=== PATIENT | female | born 1995 | race Hispanic/Latino ===

== ENCOUNTER 2017-10-28 01:33 | Emergency (ER) | payer OTHER, SELFPAY ==
[2017-10-28] MEDS ORDERED: metroNIDAZOLE 500 MG TABLET ONE (01:53)
[2017-10-28] MEDS ORDERED: HYDROCODONE/APAP 10/325 TAB ONE (01:54)
[2017-10-28] MEDS ORDERED: CLINDAMYCIN HCL 150 MG CAP ONE (01:55)
[2017-10-28] MEDS ORDERED: ONDANSETRON 4 MG (ODT) TAB ONE (01:55)
--- NOTE | 2017-10-28 01:55 | ER ---
Nurse's Notes [facility] Name: Isamar Baird Age: 22 yrs Sex: Female : 1995 Arrival Date: 10/28/2017 Time: 01:38 Bed 7 Private MD: Diagnosis: Dental caries Presentation: 10/28 01:46 Presenting complaint: Patient states: she has had a toothache for several days bought bb some ora-gel tonight and when she used it she got a migraine approx 20 mins later which was approx an hour ago. Transition of care: patient was not received from another setting of care. Onset of symptoms was October 28, 2017. Risk Assessment: Do you want to hurt yourself or someone else? Patient reports no desire to harm self or others. Initial Sepsis Screen: Does the patient meet any 2 criteria? No. Patient's initial sepsis screen is negative. Does the patient have a suspected source of infection? No. Patient's initial sepsis screen is negative. Care prior to arrival: None. 01:46 Method Of Arrival: Ambulatory bb 01:46 Acuity: NAKUL 4 bb Triage Assessment: 02:18 Headache History: The patient has had previous headaches and this one is similar to lp1 previous episodes. 02:19 Pain: Also complains of nausea, inability to concentrate. 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 - Social history:: Smoking status: Patient/guardian denies using tobacco, Patient/guardian denies using alcohol, street drugs. - Ebola Screening: : No symptoms or risks identified at this time. Screenin:46 Abuse screen: Denies threats or abuse. Denies injuries from another. Nutritional lp1 screening: No deficits noted. Tuberculosis screening: No symptoms or risk factors identified. Fall Risk None identified. Assessment: 01:44 General: Appears in no apparent distress. Behavior is calm, cooperative, appropriate lp1 for age. Pain: Complains of pain in head Pain does not radiate. Pain currently is 8 out of 10 on a pain scale. Quality of pain is described as pressure, Pain began 1 hour ago. Neuro: Level of Consciousness is awake, alert, obeys commands, Reports headache in entire. Cardiovascular: Patient's skin is warm and dry. Respiratory: Respiratory effort is even, unlabored, Respiratory pattern is regular, symmetrical. GI: No signs and/or symptoms were reported involving the gastrointestinal system. : No signs and/or symptoms were reported regarding the genitourinary system. EENT: No signs and/or symptoms were reported regarding the EENT system. Derm: Skin is pink, warm \T\ dry. Musculoskeletal: Circulation, motion, and sensation intact. Vital Signs: 01:48 BP 127 / 81; Pulse 122; Resp 16 S; Temp 98.3(O); Pulse Ox 98% on R/A; Weight 113.4 kg bb (R); Height 5 ft. 2 in. (157.48 cm) (R); Pain 8/10; 02:18 Pulse 100; Resp 16; Pulse Ox 100% on R/A; lp1 01:48 Body Mass Index 45.73 (113.40 kg, 157.48 cm) ED Course: 01:38 Patient arrived in ED. es 01:40 Nader Fatima, RN is Primary Nurse. bp 01:40 Evans Van MD is Attending Physician. kdr 01:47 Patient has correct armband on for positive identification. Pulse ox on. NIBP on. lp1 01:48 Triage completed. bb 01:48 Ladan Cabrera, RN is Primary Nurse. lp1 01:48 Arm band placed on Patient placed in an exam room, on a stretcher, on pulse oximetry. bb Family accompanied patient. 02:19 No provider procedures requiring assistance completed. Patient did not have IV access lp1 during this emergency room visit. Administered Medications: 01:55 Drug: Flagyl 500 mg Route: PO; lp1 02:19 Follow up: Response: No adverse reaction lp1 01:55 Drug: Clindamycin 300 mg Route: PO; lp1 02:20 Follow up: Response: No adverse reaction lp1 01:55 Drug: [place] 10 mg-325 mg 1 tabs Route: PO; lp1 02:20 Follow up: Response: No adverse reaction lp1 01:55 Drug: Zofran 4 mg Route: PO; lp1 02:20 Follow up: Response: No adverse reaction lp1 Outcome: 01:55 Discharge ordered by . kdr 02:19 Discharged to home ambulatory, with significant other. lp1 02:19 Condition: good 02:19 Discharge instructions given to patient, Instructed on discharge instructions, follow up and referral plans. medication usage, Demonstrated understanding of instructions, follow-up care, medications, Prescriptions given X 4. 02:20 Patient left the ED. lp1 Signatures: Evans Van MD MD kdr Antonieta Washington Brenda, RN RN bb Ladan Cabrera RN RN lp1 Nader Fatima, RN RN bp
--- NOTE | 2017-10-28 01:55 | EDPHYS ---
Physician Documentation [facility] Name: Isamar Baird Age: 22 yrs Sex: Female : 1995 Arrival Date: 10/28/2017 Time: 01:38 Bed 7 Private MD: ED Physician Evans Van HPI: 10/28 01:48 This 22 yrs old Female presents to ER via Ambulatory with complaints of kdr Headache, Toothache. 01:48 The patient presents with pain, swelling. The problem is located in the left buccal kdr mucosa, upper left first molar and upper left second molar. Onset: The symptoms/episode began/occurred gradually, 3 day(s) ago. Duration: The symptoms are continuous, and are steadily getting worse. Modifying factors: The symptoms are alleviated by nothing, the symptoms are aggravated by air, chewing, food, [place] that she put on tonight. Associated signs and symptoms: Pertinent positives: headache. Severity of symptoms: At their worst the symptoms were moderate, in the emergency department the symptoms are unchanged. The patient has experienced similar episodes in the past, a few times. The patient has not recently seen a physician. 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 - Social history:: Smoking status: Patient/guardian denies using tobacco, Patient/guardian denies using alcohol, street drugs. - Ebola Screening: : No symptoms or risks identified at this time. ROS: 01:48 Constitutional: Negative for fever, chills, and weight loss, Eyes: Negative for injury, kdr pain, redness, and discharge, Neck: Negative for injury, pain, and swelling, Cardiovascular: Negative for chest pain, palpitations, and edema, Respiratory: Negative for shortness of breath, cough, wheezing, and pleuritic chest pain, Abdomen/GI: Negative for abdominal pain, nausea, vomiting, diarrhea, and constipation. 01:48 ENT: Positive for dental pain, Teeth pain Exam: 01:48 Constitutional: This is a well developed, well nourished patient who is awake, alert, kdr and in no acute distress. Head/Face: Normocephalic, atraumatic. Eyes: Pupils equal round and reactive to light, extra-ocular motions intact. Lids and lashes normal. Conjunctiva and sclera are non-icteric and not injected. Cornea within normal limits. Periorbital areas with no swelling, redness, or edema. Neck: Trachea midline, no thyromegaly or masses palpated, and no cervical lymphadenopathy. Supple, full range of motion without nuchal rigidity, or vertebral point tenderness. No Meningismus. 01:48 ENT: Dental exam: dental caries, that is mild, specifically in the upper left second bicuspid (#13), upper left first molar (#14) and upper left second molar (#15), gum swelling, that is mild, specifically in the upper left second bicuspid (#13), upper left first molar (#14) and upper left second molar (#15), pain. Vital Signs: 01:48 BP 127 / 81; Pulse 122; Resp 16 S; Temp 98.3(O); Pulse Ox 98% on R/A; Weight 113.4 kg bb (R); Height 5 ft. 2 in. (157.48 cm) (R); Pain 8/10; 02:18 Pulse 100; Resp 16; Pulse Ox 100% on R/A; lp1 01:48 Body Mass Index 45.73 (113.40 kg, 157.48 cm) bb MDM: 01:48 Data reviewed: vital signs, nurses notes. Counseling: I had a detailed discussion with kdr the patient and/or guardian regarding: the historical points, exam findings, and any diagnostic results supporting the discharge/admit diagnosis, the need for outpatient follow up. 01:55 Patient medically screened. kdr Administered Medications: 01:55 Drug: Flagyl 500 mg Route: PO; lp1 02:19 Follow up: Response: No adverse reaction lp1 01:55 Drug: Clindamycin 300 mg Route: PO; lp1 02:20 Follow up: Response: No adverse reaction lp1 01:55 Drug: [place] 10 mg-325 mg 1 tabs Route: PO; lp1 02:20 Follow up: Response: No adverse reaction lp1 01:55 Drug: Zofran 4 mg Route: PO; lp1 02:20 Follow up: Response: No adverse reaction lp1 Disposition: 10/28/17 01:55 Discharged to Home. Impression: Dental caries. - Condition is Stable. - Discharge Instructions: Dental Pain, [id number]. - Prescriptions for Clindamycin HCl 300 mg Oral Capsule - take 1 capsule by ORAL route every 6 hours for 10 days; 40 capsule. Flagyl 500 mg Oral Tablet - take 1 tablet by ORAL route every 6 hours for 10 days; 40 tablet. Tylenol- Codeine #3 300-30 mg Oral Tablet - take 2 tablets by ORAL route every 6 hours As needed; 15 tablet. Zofran 4 mg Oral Tablet - take 1 tablet by ORAL route every 4-6 hours As needed; 12 tablet. - Medication Reconciliation Form, Thank You Letter, Antibiotic Education, Prescription Opioid Use form. - Follow up: Private Physician; When: 2 - 3 days; Reason: If symptoms return, Further diagnostic work-up, Recheck today's complaints, Continuance of care, Re-evaluation by your physician. - Problem is new. - Symptoms are unchanged. Signatures: Evans Van MD MD [facility] Gloria Robin RN RN bb Ladan Cabrera RN RN lp1 Corrections: (The following items were deleted from the chart) 02:20 01:55 10/28/2017 01:55 Discharged to Home. Impression: Dental caries. Condition is lp1 Stable. Forms are Medication Reconciliation Form, Thank You Letter, Antibiotic Education, Prescription Opioid Use. Follow up: Private Physician; When: 2 - 3 days; Reason: If symptoms return, Further diagnostic work-up, Recheck today's complaints, Continuance of care, Re-evaluation by your physician. Problem is new. Symptoms are unchanged. kdr
== END 2017-10-28 02:20 | disposition home or self-care (01) ==
LOC: ER 01:33
DX: K02.9 Dental caries, unspecified (principal); Z88.0 Allergy status to penicillin
CPT/HCPCS: 99283

== ENCOUNTER 2018-03-22 21:43 | Emergency (ER) | payer SELFPAY ==
--- NOTE | 2018-03-22 23:01 | ER ---
Nurse's Notes [facility] Name: Isamar Baird Age: 22 yrs Sex: Female : 1995 Arrival Date: 03/22/2018 Time: 21:46 Bed 17 Private MD: Diagnosis: Encounter for general adult medical examination without abnormal findings Presentation: 03/22 21:53 Presenting complaint: Patient states: right wrist pain since , radiates up tl2 forearm when moving. Denies any trauma. No swelling noted. Transition of care: patient was not received from another setting of care. Onset of symptoms was March 20, 2018. Risk Assessment: Do you want to hurt yourself or someone else? Patient reports no desire to harm self or others. Initial Sepsis Screen: Does the patient meet any 2 criteria? No. Patient's initial sepsis screen is negative. Does the patient have a suspected source of infection? No. Patient's initial sepsis screen is negative. Care prior to arrival: None. 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 - Social history:: Smoking status: Patient/guardian denies using tobacco. - Ebola Screening: : No symptoms or risks identified at this time. Screenin:55 Abuse screen: Denies threats or abuse. Nutritional screening: No deficits noted. jd3 Tuberculosis screening: No symptoms or risk factors identified. Fall Risk Ambulatory Aid- None/Bed Rest/Nurse Assist (0 pts). Gait- Normal/Bed Rest/Wheelchair (0 pts) Mental Status- Oriented to own ability (0 pts). Total Ramos Fall Scale indicates No Risk (0-24 pts). Assessment: 21:52 General: Appears in no apparent distress. uncomfortable, Behavior is calm, cooperative, jd3 appropriate for age, denies any trauma or injury to right wrist or arm.. Pain: Complains of pain in right wrist Pain radiates to right arm Quality of pain is described as aching, Aggravated by repositioning. Neuro: Level of Consciousness is awake, alert, obeys commands, Oriented to person, place, time, situation. Cardiovascular: Capillary refill < 3 seconds Patient's skin is warm and dry. Respiratory: Airway is patent Respiratory effort is even, unlabored, Respiratory pattern is regular, symmetrical. GI: Abdomen is round non-distended, Patient currently denies diarrhea, nausea, vomiting. : No signs and/or symptoms were reported regarding the genitourinary system. EENT: No signs and/or symptoms were reported regarding the EENT system. Derm: Skin is intact, Skin is dry, Skin is normal, Skin temperature is warm. Musculoskeletal: Circulation, motion, and sensation intact. Range of motion: limited in right wrist pt reports pain to right wrist with moving. 22:49 Reassessment: Patient appears in no apparent distress at this time. Patient and/or jd3 family updated on plan of care and expected duration. Pain level reassessed. Patient is alert, oriented x 3, equal unlabored respirations, skin warm/dry/pink. Vital Signs: 21:55 BP 133 / 79; Pulse 118; Resp 18; Temp 98.1(O); Pulse Ox 100% on R/A; Weight 99.79 kg; tl2 Height 5 ft. 2 in. (157.48 cm); Pain 5/10; 21:55 Body Mass Index 40.24 (99.79 kg, 157.48 cm) tl2 ED Course: 21:46 Patient arrived in ED. mr 21:48 Aaron Daly, SPENSER is Primary Nurse. jd3 21:48 Christine Norris FNP is PHCP. nh 21:48 Eduardo Schaeffer MD is Attending Physician. nh 21:55 Triage completed. tl2 21:55 Patient has correct armband on for positive identification. Bed in low position. Call jd3 light in reach. Side rails up X 1. 21:55 Arm band placed on. jd3 22:24 No provider procedures requiring assistance completed. Patient did not have IV access jd3 during this emergency room visit. Administered Medications: No medications were administered Outcome: 22:24 Medical screen evaluation completed per provider. Patient declined treatment. jd3 22:24 Condition: stable 22:24 Following a medical screening exam, the patient was provided information regarding alternative care sites and resources available per registration personnel. 23:00 Discharge ordered by . va 23:00 Patient left the ED. jd3 Signatures: Christine Norris, ELLA rose [facility] mr Saranya Alva RN RN tl2 Aaron Daly RN RN jd3 Corrections: (The following items were deleted from the chart) 21:54 21:52 Pain: Complains of pain in right wrist Pain radiates to right arm Quality of pain jd3 is described as aching, jd3 21:55 21:52 General: Appears in no apparent distress. uncomfortable, Behavior is calm, jd3 cooperative, appropriate for age, jd3 23:17 23:16 Patient left the ED. jd3 jd3
--- NOTE | 2018-03-22 23:01 | EDPHYS ---
Physician Documentation [facility] Name: Isamar Baird Age: 22 yrs Sex: Female : 1995 Arrival Date: 03/22/2018 Time: 21:46 Bed 17 Private MD: ED Physician Eduardo Schaeffer HPI: 03/22 21:53 This 22 yrs old Female presents to ER via Unassigned with complaints of Hand nh Pain, Arm Pain. 21:53 The patient or guardian reports pain. The complaints affect the medial aspect of right nh wrist. Context: The problem was sustained at home, resulted from an unknown cause. Onset: The symptoms/episode began/occurred 2 day(s) ago. Modifying factors: The symptoms are alleviated by nothing, the symptoms are aggravated by movement. Associated signs and symptoms: The patient has no apparent associated signs or symptoms. Severity of symptoms: At their worst the symptoms were moderate, just prior to arrival, in the emergency department the symptoms are unchanged. The patient has not experienced similar symptoms in the past. The patient has not recently seen a physician. Patient reports that she sleeps on her wrist and arm. She states that the pain is worse when she wakes up. There was no trauma to wrist or arm. 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 - Social history:: Smoking status: Patient/guardian denies using tobacco. - Ebola Screening: : No symptoms or risks identified at this time. ROS: 21:53 Constitutional: Negative for fever, chills, and weight loss, Eyes: Negative for injury, nh pain, redness, and discharge, ENT: Negative for injury, pain, and discharge, Neck: Negative for injury, pain, and swelling, Cardiovascular: Negative for chest pain, palpitations, and edema, Respiratory: Negative for shortness of breath, cough, wheezing, and pleuritic chest pain, Abdomen/GI: Negative for abdominal pain, nausea, vomiting, diarrhea, and constipation, Back: Negative for injury and pain, : Negative for injury, bleeding, discharge, and swelling, Skin: Negative for injury, rash, and discoloration, Neuro: Negative for headache, weakness, numbness, tingling, and seizure, Psych: Negative for depression, anxiety, suicide ideation, homicidal ideation, and hallucinations, Allergy/Immunology: Negative for hives, rash, and allergies, Endocrine: Negative for neck swelling, polydipsia, polyuria, polyphagia, and marked weight changes, Hematologic/Lymphatic: Negative for swollen nodes, abnormal bleeding, and unusual bruising. 21:53 MS/extremity: Positive for pain. Exam: 21:53 Constitutional: This is a well developed, well nourished patient who is awake, alert, nh and in no acute distress. Head/Face: Normocephalic, atraumatic. Eyes: Pupils equal round and reactive to light, extra-ocular motions intact. Lids and lashes normal. Conjunctiva and sclera are non-icteric and not injected. Cornea within normal limits. Periorbital areas with no swelling, redness, or edema. ENT: Nares patent. No nasal discharge, no septal abnormalities noted. Tympanic membranes are normal and external auditory canals are clear. Oropharynx with no redness, swelling, or masses, exudates, or evidence of obstruction, uvula midline. Mucous membranes moist. Neck: Trachea midline, no thyromegaly or masses palpated, and no cervical lymphadenopathy. Supple, full range of motion without nuchal rigidity, or vertebral point tenderness. No Meningismus. Chest/axilla: Normal chest wall appearance and motion. Nontender with no deformity. No lesions are appreciated. Cardiovascular: Regular rate and rhythm with a normal S1 and S2. No gallops, murmurs, or rubs. Normal PMI, no JVD. No pulse deficits. Respiratory: Lungs have equal breath sounds bilaterally, clear to auscultation and percussion. No rales, rhonchi or wheezes noted. No increased work of breathing, no retractions or nasal flaring. Abdomen/GI: Soft, non-tender, with normal bowel sounds. No distension or tympany. No guarding or rebound. No evidence of tenderness throughout. Back: No spinal tenderness. No costovertebral tenderness. Full range of motion. Skin: Warm, dry with normal turgor. Normal color with no rashes, no lesions, and no evidence of cellulitis. Neuro: Awake and alert, GCS 15, oriented to person, place, time, and situation. Cranial nerves II-XII grossly intact. Motor strength 5/5 in all extremities. Sensory grossly intact. Cerebellar exam normal. Normal gait. Psych: Awake, alert, with orientation to person, place and time. Behavior, mood, and affect are within normal limits. 21:53 Musculoskeletal/extremity: Extremities: all appear grossly normal, with no appreciated pain with palpation, ROM: no acute changes, Circulation is intact in all extremities. Pulses: are normal with no appreciated deficits, Sensation intact. Compartment Syndrome exam of affected extremity: is normal. Joints: All joints appear normal with full range of motion. Vital Signs: 21:55 BP 133 / 79; Pulse 118; Resp 18; Temp 98.1(O); Pulse Ox 100% on R/A; Weight 99.79 kg; tl2 Height 5 ft. 2 in. (157.48 cm); Pain 5/10; 21:55 Body Mass Index 40.24 (99.79 kg, 157.48 cm) tl2 MDM: 21:48 Patient medically screened. sc 21:53 Data reviewed: vital signs, nurses notes, I have discussed the patient's sc presentation/case with the attending Emergency Department Physician; and as a result, I will discharge patient. Counseling: I had a detailed discussion with the patient and/or guardian regarding: the historical points, exam findings, and any diagnostic results supporting the discharge/admit diagnosis, the need for outpatient follow up, to return to the emergency department if symptoms worsen or persist or if there are any questions or concerns that arise at home. Administered Medications: No medications were administered Disposition: 21:53 Medical Screen. sc Disposition: 0818 23:00 Discharged to Home as Medical Screen. Impression: Encounter for general adult medical examination without abnormal findings. - Condition is Stable. - Medication Reconciliation Form, Thank You Letter, Antibiotic Education, Prescription Opioid Use form. - Follow up: Private Physician; When: 2 - 3 days; Reason: Recheck today's complaints. - Problem is new. - Symptoms are unchanged. Addendum: 03/26/2018 21:49 Co-signature as Attending Physician, Eduardo Schaeffer MD Available for consultation at p s1 all times. . Signatures: Christine Norris, SUPERVISOR SHIPPING ROOM SUPERVISOR SHIPPING ROOM sc Saranya Alva RN RN tl2 Aaron Daly, RN RN jd3 Eduardo Schaeffer MD MD ps1 Corrections: (The following items were deleted from the chart) 03/22 23:16 23:00 03/22/2018 23:00 Discharged to Home as Medical Screen. Impression: Encounter for jd3 general adult medical examination without abnormal findings. Condition is Stable. Forms are Medication Reconciliation Form, Thank You Letter, Antibiotic Education, Prescription Opioid Use. Follow up: Private Physician; When: 2 - 3 days; Reason: Recheck today's complaints. Problem is new. Symptoms are unchanged. nh
== END 2018-03-22 23:16 | disposition home or self-care (01) ==
LOC: ER 21:43
DX: Z00.00 Encounter for general adult medical examination without abnormal findings (principal)
CPT/HCPCS: 99281

== ENCOUNTER 2020-02-20 18:48 | Emergency (ER) | payer SELFPAY ==
--- NOTE | 2020-02-20 19:32 | ER ---
Nurse's Notes [facility] Name: Isamar Baird Age: 24 yrs Sex: Female : 1995 Arrival Date: 02/20/2020 Time: 18:52 Bed 13 Private MD: Diagnosis: Acute serous otitis media Presentation: 02/19 19:10 Chief complaint: Patient states: Left ear pain for 3 days. No fever. Took amoxicillin iw from [place] the past three days, no relief yet. Coronavirus screen: Client denies travel out of the [place] in the last 14 days. At this time, the client does not indicate any symptoms associated with coronavirus-19. Ebola Screen: Patient denies travel to an Ebola-affected area in the 21 days before illness onset. Initial Sepsis Screen: Does the patient meet any 2 criteria? HR > 90 bpm. No. Patient's initial sepsis screen is negative. Does the patient have a suspected source of infection? Yes: Other: ear infection. Risk Assessment: Do you want to hurt yourself or someone else? Patient reports no desire to harm self or others. Onset of symptoms was February 18, 2020. 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 - Social history:: Smoking status: Patient denies any tobacco usage or history of. Screenin:41 Abuse screen: Denies threats or abuse. Nutritional screening: No deficits noted. ll1 Tuberculosis screening: No symptoms or risk factors identified. Fall Risk None identified. Total Ramos Fall Scale indicates No Risk (0-24 pts). Assessment: 19:10 General: Appears uncomfortable, Behavior is calm, cooperative, appropriate for age. ll1 Pain: Complains of pain in L ear Quality of pain is described as aching, Pain began 2-3 days ago. Neuro: No deficits noted. Cardiovascular: No deficits noted. Respiratory: No deficits noted. Respiratory: Denies cough, shortness of breath. EENT: Ear canal clear on left ear Reports pain in L ear. Vital Signs: 19:10 BP 135 / 79; Pulse 90; Resp 18; Temp 98.1; Pulse Ox 100% ; Weight 118.84 kg; Height 5 iw ft. 1 in. (154.94 cm); Pain 10/10; 19:10 Body Mass Index 49.50 (118.84 kg, 154.94 cm) ED Course: 18:52 Patient arrived in ED. mr 19:07 Jose Francisco Jackman PA is [facility] 19:07 Soy Paul MD is Attending Physician. [facility] 19:10 Arm band placed on Patient placed in an exam room, on a stretcher. iw 19:12 Triage completed. iw 19:40 Slime Li, RN is Primary Nurse. ll1 19:41 No provider procedures requiring assistance completed. Patient did not have IV access ll1 during this emergency room visit. 19:42 Patient has correct armband on for positive identification. Bed in low position. Call ll1 light in reach. Side rails up X 1. Cardiac monitoring not applicable on this patient. Administered Medications: No medications were administered Outcome: 19:32 Discharge ordered by . [facility] 19:41 Discharged to home ambulatory. ll1 19:41 Condition: stable 19:41 Discharge instructions given to patient, Instructed on discharge instructions, follow up and referral plans. no drinking with medication, no driving heavy equipment, medication usage, Demonstrated understanding of instructions, follow-up care, medications, Prescriptions given X 2. 19:42 Patient left the ED. ll1 Signatures: Jose Francisco Jackman PA PA jmm Steven Christine Hui Lai RN RN Slime Li RN RN ll1
--- NOTE | 2020-02-20 19:32 | EDPHYS ---
Physician Documentation [facility] Name: Isamar Baird Age: 24 yrs Sex: Female : 1995 Arrival Date: 02/20/2020 Time: 18:52 Bed 13 Private MD: ED Physician Soy Paul HPI: 02/19 19:27 This 24 yrs old Female presents to ER via Ambulatory with complaints of Ear jmm Pain. 19:27 The patient presents with pain. Onset: The symptoms/episode began/occurred gradually, 3 jmm day(s) ago. Associated signs and symptoms: Pertinent negatives: cough, fever. This is a 24 year old female with a history of migraines that presents to the ED with complaints of left ear pain beginning 3 days ago. Not relieved with amoxicillin or ibuprofen. . 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 - Social history:: Smoking status: Patient denies any tobacco usage or history of. ROS: 19:27 Constitutional: Negative for fever, chills, and weight loss, Cardiovascular: Negative jmm for chest pain, palpitations, and edema, Respiratory: Negative for shortness of breath, cough, wheezing, and pleuritic chest pain. 19:27 ENT: Positive for ear pain. 19:27 All other systems are negative. Exam: 19:27 Constitutional: This is a well developed, well nourished patient who is awake, alert, jmm and in no acute distress. Head/Face: atraumatic. Eyes: EOMI, no conjunctival erythema appreciated 19:27 Neck: Trachea midline, Supple Chest/axilla: Normal chest wall appearance and motion. Cardiovascular: Regular rate and rhythm. No edema appreciated Respiratory: Normal respirations, no respiratory distress appreciated Abdomen/GI: Non distended, soft Back: Normal ROM Skin: General appearance color normal MS/ Extremity: Moves all extremities, no obvious deformities appreciated, no edema noted to the lower extremities Neuro: Awake and alert, normal gait Psych: Behavior is normal, Mood is normal, Patient is cooperative and pleasant 19:27 ENT: TM's: erythema, that is moderate, on the left. Vital Signs: 19:10 BP 135 / 79; Pulse 90; Resp 18; Temp 98.1; Pulse Ox 100% ; Weight 118.84 kg; Height 5 iw ft. 1 in. (154.94 cm); Pain 10/10; 19:10 Body Mass Index 49.50 (118.84 kg, 154.94 cm) iw MDM: 19:14 Patient medically screened. [facility] 19:30 Data reviewed: vital signs, nurses notes. Counseling: I had a detailed discussion with gisselle the patient and/or guardian regarding: the historical points, exam findings, and any diagnostic results supporting the discharge/admit diagnosis, the need for outpatient follow up, to return to the emergency department if symptoms worsen or persist or if there are any questions or concerns that arise at home. ED course: Patient is alert and non toxic in appearance in the ED> PE findings consistent with OM. Patient is advised to follow up with pcp and otherwise given strict return precautions Patient understood and agrees with the plan of care. . Administered Medications: No medications were administered Disposition: 02/20/20 19:32 Discharged to Home. Impression: Acute serous otitis media. - Condition is Stable. - Discharge Instructions: Otitis Media, Adult. - Prescriptions for Augmentin 875- 125 mg Oral Tablet - take 1 tablet by ORAL route every 12 hours for 10 days; 20 tablet. Ultracet 37.5- 325 mg Oral Tablet - take 1 tablet by ORAL route every 6 hours - for up to 5 days; do not exceed 8 tablets per day.; 20 tablet. - Medication Reconciliation Form, Thank You Letter, Antibiotic Education, Prescription Opioid Use form. - Follow up: Private Physician; When: 2 - 3 days; Reason: Recheck today's complaints, Continuance of care, Re-evaluation by your physician. Addendum: 02/22/2020 08:40 Co-signature as Attending Physician, Soy Paul MD I agree with the assessment and c wood plan of care. Signatures: Soy Paul MD MD cha Mickail, Joel, PA PA jmm Williams, Irene, RN RN iw Slime Li RN RN ll1 Corrections: (The following items were deleted from the chart) 02/19 19:42 19:32 02/20/2020 19:32 Discharged to Home. Impression: Acute serous otitis media. ll1 Condition is Stable. Forms are Medication Reconciliation Form, Thank You Letter, Antibiotic Education, Prescription Opioid Use. Follow up: Private Physician; When: 2 - 3 days; Reason: Recheck today's complaints, Continuance of care, Re-evaluation by your physician. gisselle
[2020-02-20 20:19] VITALS: BP 135/79; TEMP 98.1; O2SAT 100
== END 2020-02-20 19:42 | disposition home or self-care (01) ==
LOC: ER 18:48
DX: H65.02 Acute serous otitis media, left ear (principal); Z88.0 Allergy status to penicillin
CPT/HCPCS: 99282

== ENCOUNTER 2020-02-21 15:26 | Emergency (ER) | payer SELFPAY ==
[2020-02-21] MEDS ORDERED: MORPHINE 4 MG/ML SYR ONE (18:14)
[2020-02-21] MEDS ORDERED: ONDANSETRON 4 MG/2 ML VIAL ONE (18:14)
--- NOTE | 2020-02-21 18:37 | RAD REPORT ---
EXAM DESCRIPTION: CT - Soft Tissue Neck W/Contr CLINICAL HISTORY: left ear pain, left jaw pain, swelling COMPARISON: No comparisons TECHNIQUE All CT scans are performed using dose optimization technique as appropriate and may includ e automated exposure control or mA/KV adjustment according to patient size. FINDINGS: Nasopharyngeal soft tissues are prominent. Fossa Rosenmller are normal. There is significant soft tissue swelling and thickening involving the left external ear. Mildly enla rged 9 mm lymph node is seen in the adjacent parotid gland. The mastoid air cell middle ear on the le ft appear clear. There is no drainable abscess seen. No bone destruction seen. Multiple enlarged lymph nodes are along both jugular chains, largest on the left measuring 15 mm in short axis likely reactive in etiology IMPRESSION: Significant left-sided otitis externa.
--- NOTE | 2020-02-21 18:48 | ER ---
Nurse's Notes [facility] Name: Isamar Baird Age: 24 yrs Sex: Female : 1995 Arrival Date: 02/21/2020 Time: 15:27 Bed 24 Private MD: Diagnosis: Acute actinic otitis externa Presentation: 02/20 15:41 Chief complaint: Seen in ED last night for ear pain, today pain has become severe. hb Coronavirus screen: At this time, the client does not indicate any symptoms associated with coronavirus-19. Ebola Screen: No symptoms or risks identified at this time. Initial Sepsis Screen: Does the patient meet any 2 criteria? HR > 90 bpm. No. Patient's initial sepsis screen is negative. Does the patient have a suspected source of infection? No. Patient's initial sepsis screen is negative. Risk Assessment: Do you want to hurt yourself or someone else? Patient reports no desire to harm self or others. Onset of symptoms was February 17, 2020. 15:41 Method Of Arrival: Ambulatory hb 15:41 Acuity: NAUKL 4 hb 18:00 Acuity: NAKUL 3 iw Triage Assessment: 19:00 General: Appears in no apparent distress. Behavior is calm, cooperative. 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 - Social history:: Smoking status: Patient denies any tobacco usage or history of. Screenin:11 Abuse screen: Denies threats or abuse. Denies injuries from another. Nutritional iw screening: No deficits noted. Tuberculosis screening: No symptoms or risk factors identified. Fall Risk IV access (20 points). Assessment: 17:41 Reassessment: Pt updated on delay in being seen by a provider. Pt does not appear to be dm5 upset at this time and states that she understands. 17:50 General: Appears uncomfortable, Behavior is cooperative. Pain: Complains of pain in iw left ear, left cheek and left jaw Pain currently is 10 out of 10 on a pain scale. Neuro: Level of Consciousness is awake, alert, obeys commands, Oriented to person, place, time, situation. Cardiovascular: Patient's skin is warm and dry. Respiratory: Respiratory effort is even, unlabored, Respiratory pattern is regular, symmetrical. GI: No signs and/or symptoms were reported involving the gastrointestinal system. EENT: Reports pain in left ear and left jaw. Derm: Skin is pink, warm \T\ dry. Musculoskeletal: No signs and/or symptoms reported regarding the musculoskeletal system. Range of motion: intact in all extremities. 18:10 Reassessment: Patient appears in no apparent distress at this time. Patient and/or iw family updated on plan of care and expected duration. Pain level reassessed. pain medication administered. Vital Signs: 15:41 BP 183 / 101; Pulse 92; Resp 18; Temp 97.7; Pulse Ox 100% on R/A; Pain 10/10; hb 17:50 Temp 99.1(O); dm5 18:10 BP 133 / 79; Pulse 114; Resp 18 S; Pulse Ox 100% on R/A; iw 18:45 BP 139 / 82; Pulse 99; Resp 18 S; Pulse Ox 100% on R/A; iw ED Course: 15:27 Patient arrived in ED. ds1 15:42 Triage completed. hb 15:42 Arm band placed on. hb 17:41 Patient has correct armband on for positive identification. iw 17:48 Hui Lai, RN is Primary Nurse. iw 17:49 Jose Francisco Jackman PA is PHCP. jmm 17:49 Soy Paul MD is Attending Physician. jmm 18:00 Inserted saline lock: 20 gauge in right antecubital area, using aseptic technique. dm5 Blood collected. 18:23 Soft Tissue Neck W/Contr CT In Process Unspecified. EDMS 18:47 Adia Narayan MD is Referral Physician. jm 19:19 No provider procedures requiring assistance completed. IV discontinued, intact, iw bleeding controlled, No redness/swelling at site. Pressure dressing applied. Administered Medications: 18:10 Drug: morphine 4 mg Route: IVP; Site: right antecubital; iw 18:32 Follow up: Response: No adverse reaction hb 18:10 Drug: Zofran (Ondansetron) 4 mg Route: IVP; Site: right antecubital; iw 18:32 Follow up: Response: No adverse reaction hb 18:46 CANCELLED (Duplicate Order): CIPRODEX 4 drops Otic in left ear once [facility] 19:02 Drug: fentaNYL (PF) 50 mcg Route: IVP; Site: right antecubital; iw Outcome: 18:47 Discharge ordered by . [place] 19:19 Discharged to home ambulatory. iw 19:19 Condition: good 19:19 Discharge instructions given to patient, Instructed on discharge instructions, follow up and referral plans. medication usage, Demonstrated understanding of instructions, follow-up care, medications, Prescriptions given X 2. 19:20 Patient left the ED. iw Signatures: Dispatcher [employer] Jovanna Ortiz, RN RN dm5 Jose Francisco Jackman PA PA jmm Sanford, Demi ds1 Hui Lai RN RN iw Janneth Urbina RN RN hb
--- NOTE | 2020-02-21 18:48 | EDPHYS ---
Physician Documentation [facility] Name: Isamar Baird Age: 24 yrs Sex: Female : 1995 Arrival Date: 02/21/2020 Time: 15:27 Bed 24 Private MD: ED Physician Soy Paul HPI: 02/20 18:06 This 24 yrs old Female presents to ER via Ambulatory with complaints of Ear jmm Pain. 18:06 The patient presents with pain. Onset: The symptoms/episode began/occurred gradually, 3 jmm day(s) ago. Modifying factors: The symptoms are alleviated by nothing, the symptoms are aggravated by nothing. Associated signs and symptoms: Pertinent negatives: fever. This is a 24 year old female with a history of migraines that presents to the ED with complaints of left ear pain which has been ongoing for approx 3 days. Patient states she initially took amoxicillin 500 mg TID but has not helped symptoms. . 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 - Social history:: Smoking status: Patient denies any tobacco usage or history of. ROS: 18:16 Constitutional: Negative for fever, chills, and weight loss. jmm 18:16 ENT: Positive for ear pain. 18:16 All other systems are negative. Exam: 18:16 Constitutional: This is a well developed, well nourished patient who is awake, alert, jmm and in no acute distress. 18:16 Neck: Trachea midline, Supple Chest/axilla: Normal chest wall appearance and motion. Cardiovascular: Regular rate and rhythm. No edema appreciated Respiratory: Normal respirations, no respiratory distress appreciated Abdomen/GI: Non distended, soft Back: Normal ROM Skin: General appearance color normal MS/ Extremity: Moves all extremities, no obvious deformities appreciated, no edema noted to the lower extremities Neuro: Awake and alert, normal gait Psych: Behavior is normal, Mood is normal, Patient is cooperative and pleasant 18:16 Head/face: left sided facial pain on palpation. 18:16 ENT: purulent drainage noted to the left canal, ant auricular lymph node ttp, tm erythema. Vital Signs: 15:41 BP 183 / 101; Pulse 92; Resp 18; Temp 97.7; Pulse Ox 100% on R/A; Pain 10/10; hb 17:50 Temp 99.1(O); dm5 18:10 BP 133 / 79; Pulse 114; Resp 18 S; Pulse Ox 100% on R/A; iw 18:45 BP 139 / 82; Pulse 99; Resp 18 S; Pulse Ox 100% on R/A; iw MDM: 17:49 Patient medically screened. [facility] 18:46 Data reviewed: vital signs, nurses notes. Counseling: I had a detailed discussion with [facility] the patient and/or guardian regarding: the historical points, exam findings, and any diagnostic results supporting the discharge/admit diagnosis, radiology results, the need for outpatient follow up, to return to the emergency department if symptoms worsen or persist or if there are any questions or concerns that arise at home. ED course: Patient prescribed topical abx. Patient is advised to follow up with ent and otherwise given strict return precautions. Patient understood and agrees with the plan of care.. 02/20 18:01 Order name: Soft Tissue Neck W/Contr CT; Complete Time: 18:39 [facility] 02/20 17:54 Order name: Saline Lock; Complete Time: 18:11 [facility] Administered Medications: 18:10 Drug: morphine 4 mg Route: IVP; Site: right antecubital; iw 18:32 Follow up: Response: No adverse reaction hb 18:10 Drug: Zofran (Ondansetron) 4 mg Route: IVP; Site: right antecubital; iw 18:32 Follow up: Response: No adverse reaction hb 18:46 CANCELLED (Duplicate Order): CIPRODEX 4 drops Otic in left ear once [facility] 19:02 Drug: fentaNYL (PF) 50 mcg Route: IVP; Site: right antecubital; iw Disposition: 02/21 09:01 Co-signature as Attending Physician, Soy Paul MD I agree with the assessment and andrew plan of care. Disposition: 02/21/20 18:47 Discharged to Home. Impression: Acute actinic otitis externa. - Condition is Stable. - Discharge Instructions: Otitis Externa. - Prescriptions for Cortisporin- TC 3.3-3-10-0.5 mg/mL Otic Suspension - instill 4 drop by OTIC route every 6 hours; 1 bottle. Tylenol- Codeine #3 300-30 mg Oral Tablet - take 1 tablet by ORAL route every 6 hours As needed; 20 tablet. - Medication Reconciliation Form, Thank You Letter, Antibiotic Education, Prescription Opioid Use form. - Follow up: Adia Narayan MD; When: 2 - 3 days; Reason: Recheck today's complaints, Continuance of care, Re-evaluation by your physician. Signatures: Dispatcher [employer] [facility] Soy Paul MD MD cha Mickail, Joel, PA PA Hui Haywood, SPENSER RN Janneth Urbina RN RN Corrections: (The following items were deleted from the chart) 02/20 18:07 17:57 Facial Bones W/ Con \T\ [id number] ordered. [facility] 18:46 18:40 CIPRODEX Drops 4 drops Otic in left ear once ordered. [facility] 19:20 18:47 02/21/2020 18:47 Discharged to Home. Impression: Acute actinic otitis externa. iw Condition is Stable. Forms are Medication Reconciliation Form, Thank You Letter, Antibiotic Education, Prescription Opioid Use. Follow up: Adia Narayan; When: 2 - 3 days; Reason: Recheck today's complaints, Continuance of care, Re-evaluation by your physician. crow
[2020-02-21 19:27] VITALS: O2SAT 100
[2020-02-21 19:28] VITALS: TEMP 99.1
[2020-02-21 19:29] VITALS: BP 133/79
== END 2020-02-21 19:20 | disposition home or self-care (01) ==
LOC: ER 15:26
DX: H60.512 Acute actinic otitis externa, left ear (principal); Z88.0 Allergy status to penicillin
CPT/HCPCS: 70491; 96374; 96375; 99284; J2405; Q9967

== ENCOUNTER 2020-02-22 01:54 | Emergency (ER) | payer SELFPAY ==
--- NOTE | 2020-02-22 03:06 | ER ---
Nurse's Notes [facility] Name: Isamar Baird Age: 24 yrs Sex: Female : 1995 Arrival Date: 02/22/2020 Time: 01:55 Bed 6 Private MD: Diagnosis: Otalgia, bilateral Presentation: 02/21 02:45 Chief complaint: Patient states: I was here earlier due to an ear ache in my left ear. jb4 I was prescribed tramadol and Augmentin. Now the pain is in the other ear too and its causing my entire back of my head to hurt. Coronavirus screen: Client denies travel out of the [place] in the last 14 days. At this time, the client does not indicate any symptoms associated with coronavirus-19. Ebola Screen: No symptoms or risks identified at this time. Initial Sepsis Screen: Does the patient meet any 2 criteria? HR > 90 bpm. Yes Does the patient have a suspected source of infection? No. Patient's initial sepsis screen is negative. Risk Assessment: Do you want to hurt yourself or someone else? Patient reports no desire to harm self or others. Onset of symptoms was February 22, 2020. Transition of care: patient was not received from another setting of care. 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 - Social history:: Smoking status: Patient denies any tobacco usage or history of. Patient/guardian denies using alcohol, street drugs. Screenin:49 Abuse screen: Denies threats or abuse. Nutritional screening: No deficits noted. jb4 Tuberculosis screening: No symptoms or risk factors identified. Fall Risk None identified. Assessment: 02:49 General: Appears in no apparent distress. uncomfortable, Behavior is calm, cooperative, jb4 appropriate for age. Pain: Complains of pain in right ear, left ear, left aspect of posterior pharynx and right aspect of posterior pharynx Pain does not radiate. Pain currently is 10 out of 10 on a pain scale. Quality of pain is described as stabbing. Neuro: Level of Consciousness is awake, alert, obeys commands, Oriented to person, place, time, situation. Cardiovascular: Patient's skin is warm and dry. Respiratory: Airway is patent Respiratory effort is even, unlabored, Respiratory pattern is regular, symmetrical. GI: No signs and/or symptoms were reported involving the gastrointestinal system. : No signs and/or symptoms were reported regarding the genitourinary system. EENT: Tympanic membrane reddened on left ear and right ear Ear canal w/ drainage noted from left ear Throat is clear is reddened has enlarged tonsils bilaterally with gag reflex present. Derm: Skin is intact, Skin is pink, warm \T\ dry. Musculoskeletal: Circulation, motion, and sensation intact. Range of motion: intact in all extremities. 03:23 Reassessment: Patient appears in no apparent distress at this time. Patient and/or jb4 family updated on plan of care and expected duration. Pain level reassessed. Patient is alert, oriented x 3, equal unlabored respirations, skin warm/dry/pink. Vital Signs: 02:45 BP 136 / 84; Pulse 129; Resp 16; Temp 98.7; Pulse Ox 98% on R/A; Weight 118.84 kg (R); jb4 Height 5 ft. 1 in. (154.94 cm) (R); Pain 10/10; 03:23 BP 139 / 75; Pulse 105; Resp 16; Pulse Ox 100% on R/A; jb4 02:45 Body Mass Index 49.50 (118.84 kg, 154.94 cm) jb4 ED Course: 01:55 Patient arrived in ED. cl3 02:44 Jg Hogan, SPENSER is Primary Nurse. jb4 02:47 Triage completed. jb4 02:48 Arm band placed on right wrist. jb4 02:49 Patient has correct armband on for positive identification. Bed in low position. Call jb4 light in reach. Side rails up X 1. Pulse ox on. NIBP on. 02:55 Andres Barrera MD is Attending Physician. tw4 03:23 No provider procedures requiring assistance completed. Patient did not have IV access jb4 during this emergency room visit. Administered Medications: 03:14 Drug: TORadol 60 mg Route: IM; Site: right gluteus; jb4 03:23 Follow up: Response: No adverse reaction; Pain is decreased jb4 03:14 Drug: Tylenol #3 (300 mg-30 mg) 2 tabs Route: PO; jb4 03:23 Follow up: Response: No adverse reaction jb4 Outcome: 03:06 Discharge ordered by . tw4 03:23 Discharged to home ambulatory. jb4 03:23 Condition: stable 03:23 Discharge instructions given to patient, Instructed on discharge instructions, follow up and referral plans. Demonstrated understanding of instructions, follow-up care. 03:24 Patient left the ED. jb4 Signatures: Jg Hogan RN RN jb4 Andres Barrera MD MD tw4 Margo Li cl3
--- NOTE | 2020-02-22 03:06 | EDPHYS ---
Physician Documentation [facility] Name: Isamar Baird Age: 24 yrs Sex: Female : 1995 Arrival Date: 02/22/2020 Time: 01:55 Bed 6 Private MD: ED Physician Andres Barrera HPI: 02/21 03:04 This 24 yrs old Female presents to ER via Wheelchair with complaints of tw4 Earache. 03:04 The patient presents with pain. The complaints affect the left ear. Onset: The tw4 symptoms/episode began/occurred today. Modifying factors: The symptoms are alleviated by nothing, the symptoms are aggravated by nothing. Severity of symptoms: At their worst the symptoms were moderate in the emergency department the symptoms are unchanged. The patient has not experienced similar symptoms in the past. 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 - Social history:: Smoking status: Patient denies any tobacco usage or history of. Patient/guardian denies using alcohol, street drugs. ROS: 03:04 Constitutional: Negative for fever, chills, and weight loss, Eyes: Negative for injury, tw4 pain, redness, and discharge, Cardiovascular: Negative for chest pain, palpitations, and edema, Respiratory: Negative for shortness of breath, cough, wheezing, and pleuritic chest pain, Abdomen/GI: Negative for abdominal pain, nausea, vomiting, diarrhea, and constipation, Back: Negative for injury and pain, MS/Extremity: Negative for injury and deformity, Skin: Negative for injury, rash, and discoloration. Exam: 03:04 Constitutional: This is a well developed, well nourished patient who is awake, alert, tw4 and in no acute distress. Head/Face: Normocephalic, atraumatic. Chest/axilla: Normal chest wall appearance and motion. Nontender with no deformity. No lesions are appreciated. Cardiovascular: Regular rate and rhythm with a normal S1 and S2. No gallops, murmurs, or rubs. Normal PMI, no JVD. No pulse deficits. Respiratory: Lungs have equal breath sounds bilaterally, clear to auscultation and percussion. No rales, rhonchi or wheezes noted. No increased work of breathing, no retractions or nasal flaring. Abdomen/GI: Soft, non-tender, with normal bowel sounds. No distension or tympany. No guarding or rebound. No evidence of tenderness throughout. Back: No spinal tenderness. No costovertebral tenderness. Full range of motion. Skin: Warm, dry with normal turgor. Normal color with no rashes, no lesions, and no evidence of cellulitis. MS/ Extremity: Pulses equal, no cyanosis. Neurovascular intact. Full, normal range of motion. Neuro: Awake and alert, GCS 15, oriented to person, place, time, and situation. Cranial nerves II-XII grossly intact. Motor strength 5/5 in all extremities. Sensory grossly intact. Cerebellar exam normal. Normal gait. Vital Signs: 02:45 BP 136 / 84; Pulse 129; Resp 16; Temp 98.7; Pulse Ox 98% on R/A; Weight 118.84 kg (R); jb4 Height 5 ft. 1 in. (154.94 cm) (R); Pain 10/10; 03:23 BP 139 / 75; Pulse 105; Resp 16; Pulse Ox 100% on R/A; jb4 02:45 Body Mass Index 49.50 (118.84 kg, 154.94 cm) jb4 MDM: 02:55 Patient medically screened. 4 03:04 Differential diagnosis: otitis media, otitis externa. Data reviewed: vital signs, tw4 nurses notes. Data interpreted: Pulse oximetry: Interpretation: normal. Counseling: I had a detailed discussion with the patient and/or guardian regarding: the historical points, exam findings, and any diagnostic results supporting the discharge/admit diagnosis. Special discussion: I discussed with the patient/guardian in detail that at this point there is no indication for admission to the hospital. It is understood, however, that if the symptoms persist or worsen the patient needs to return immediately for re-evaluation. Administered Medications: 03:14 Drug: TORadol 60 mg Route: IM; Site: right gluteus; 4 03:23 Follow up: Response: No adverse reaction; Pain is decreased jb4 03:14 Drug: Tylenol #3 (300 mg-30 mg) 2 tabs Route: PO; jb4 03:23 Follow up: Response: No adverse reaction jb4 Disposition: 02/22/20 03:06 Discharged to Home. Impression: Otalgia, bilateral. - Condition is Stable. - Discharge Instructions: Earache, Adult. - Medication Reconciliation Form, Thank You Letter, Antibiotic Education, Prescription Opioid Use form. - Follow up: Private Physician; When: Upon discharge from the Emergency Department; Reason: Recheck today's complaints, Continuance of care, Re-evaluation by your physician. - Problem is an ongoing problem. - Symptoms have worsened. Signatures: Jg Hogan RN RN jb4 Andres Barrera MD MD tw4 Corrections: (The following items were deleted from the chart) 03:24 03:06 02/22/2020 03:06 Discharged to Home. Impression: Otalgia, bilateral. Condition is jb4 Stable. Forms are Medication Reconciliation Form, Thank You Letter, Antibiotic Education, Prescription Opioid Use. Follow up: Private Physician; When: Upon discharge from the Emergency Department; Reason: Recheck today's complaints, Continuance of care, Re-evaluation by your physician. Problem is an ongoing problem. Symptoms have worsened. tw4
[2020-02-22] MEDS ORDERED: KETOROLAC 30 MG/ML INJ ONE (03:20)
[2020-02-22] MEDS ORDERED: CODEINE 30MG/APAP 300MG TAB ONE (03:20)
[2020-02-22 03:31] VITALS: TEMP 98.7
[2020-02-22 03:33] VITALS: BP 139/75; O2SAT 100
== END 2020-02-22 03:24 | disposition home or self-care (01) ==
LOC: ER 01:54
DX: H92.03 Otalgia, bilateral (principal); Z88.0 Allergy status to penicillin
CPT/HCPCS: 96372; 99283

== ENCOUNTER 2023-12-02 08:25 | Inpatient (IN) | payer SELFPAY ==
[2023-12-02] MEDS ORDERED: ASPIRIN 81 MG CHEWABLE TABLET ONE (08:48)
[2023-12-02] MEDS ORDERED: LORazepam 2 MG/ML VIAL ONE (08:48)
[2023-12-02 08:55] LABS: Absolute Basophils 0.1 K/uL (0-0.5); Absolute Eosinophils 0.2 K/uL (0-0.5); Absolute Lymphocytes (CBC) 3.5 K/uL (0.7-4.9); Absolute Monocytes 0.6 K/uL (0.1-1.3); Basophils % 0.5 % (0-1.3); Eosinophils % 1.7 % (0-4.4); Hematocrit 39.4 % (36.0-45.0); Hemoglobin 12.9 g/dL (12.0-15.0); MCH 28.1 pg (27.0-35.0); MCHC 32.6 g/dL (32.0-36.0); MCV 86.1 fL (80-100); MPV 8.3 fL (7.6-11.3); Monocytes % 5.4 % (3.3-12.3); Neutrophils % 61.4 % (41.7-73.7); Platelets 311 thou/uL (152-406); RBC Red Blood Cell Count 4.58 M/uL (3.86-4.86)
[2023-12-02 09:03] LABS: D-Dimer 0.381 FEUug/mL (0-0.500); PT Prothrombin Time 12.3 SECONDS (9.4-12.5); Protime INR 1.1
[2023-12-02 09:14] LABS: SARS-CoV-2 Antigen CONTROL BLUE LINE VIS/BG OK; SARS-CoV-2 Antigen Rapid Res Negative (Negative)
[2023-12-02 09:16] LABS: ALT/SGPT 74 U/L (13-56); AST/SGOT 31 U/L (15-37); Albumin 3.5 g/dL (3.4-5.0); Albumin/Globulin Ratio 0.8 (1.1-1.8); Alkaline Phosphatase 74 U/L (45-117); BUN Blood Urea Nitrogen 11 mg/dL (7-18); Bicarbonate 26 mEq/L (21-32); Bilirubin Total 0.3 mg/dL (0.2-1.0); Globulin 4.3 g/dL (2.3-3.5); Glomerular Filtration Rate 127 ml/min (=/>90); Glucose Level 143 mg/dL (74-106); Magnesium 1.8 mg/dL (1.6-2.4); Protein, Total 7.8 g/dL (6.4-8.2); Sodium Level 135 mEq/L (136-145)
[2023-12-02 09:17] LABS: Bilirubin Direct < 0.2 mg/dL (0-0.2); Bilirubin Indirect, Calculated 0.1 mg/dL (0.2-0.8); NT PRO-BNP 18 pg/mL (<125); Troponin High Sensitivity < 3.0 pg/mL (<58.9)
--- NOTE | 2023-12-02 09:22 | RAD REPORT ---
EXAM DESCRIPTION: Hilario Single View12/02/2023 9:06 am CLINICAL HISTORY: CHEST PAIN COMPARISON: No comparisons TECHNIQUE: Portable AP view of the chest. FINDINGS: Perihilar streaky opacities and some bronchial wall thickening. Somewhat decreased penetra tion limits evaluation the left hemithorax. No pneumothorax or effusion. The cardiomediastinal conto urs are unremarkable. IMPRESSION: Findings suggesting reactive airway changes or viral infection. No evidence of focal pne umonia.
[2023-12-02 10:46] LABS: Specific Gravity 1.024 (1.005-1.030); Urine Bacteria 20-50 /HPF (<20); Urine Bilirubin NEGATIVE (Negative); Urine Blood 1+ (Negative); Urine Clarity Extremely Turbid (Clear); Urine Color Light-Yellow (Yellow); Urine Culture Reflex Order NOT NEEDED; Urine Glucose NEGATIVE (Negative); Urine Ketones NEGATIVE (Negative); Urine Micro Reflex YN NO BILL MICROSCOPIC; Urine Mucus Slight /HPF (None Seen); Urine Nitrite NEGATIVE (Negative); Urine Protein TRACE (Negative); Urine RBC <5 /HPF (None Seen); Urine Urobilinogen Normal (Normal); Urine WBC <5 /HPF (<5)
[2023-12-02 10:47] LABS: Specific Gravity 1.024 (1.005-1.030)
[2023-12-02] MEDS ORDERED: CEFTRIAXONE 1000 MG/VIAL ONE (11:09)
[2023-12-02] MEDS ORDERED: NA CHLORIDE 0.9% 50 ML ONE (11:11)
--- NOTE | 2023-12-02 11:43 | RAD REPORT ---
EXAM DESCRIPTION: CT - Angio Aorta For Dissection - 12/02/2023 10:56 am CLINICAL HISTORY: DISSECTION COMPARISON: No comparisons TECHNIQUE: Thin axial CT images of the chest, abdomen, and pelvis were obtained during administratio n of 100mL Isovue 370 IV contrast. Sagittal and coronal reconstructions as well as maximal intensity projection reconstruction were generated and reviewed per an aortic angiography protocol. All CT scans are performed using dose optimization technique as appropriate and may include automated exposure control or mA/KV adjustment according to patient size. FINDINGS: Aorta is normal in diameter with no dissection or other acute aortic findings. Reconstruct ion images show no significant findings. Pulmonary arteries are normal as well. No mass or infiltrate in the lung parenchyma. No pleural thickening, pleural effusion or pneumothorax . No abnormal mediastinal or hilar mass or lymphadenopathy seen. No chest wall mass or abnormal axillar y lymphadenopathy. Celiac, SMA and renal arteries show no suspicious findings. Mucosal hyperenhancement and wall thicken ing of the gallbladder. Diffuse hepatic parenchymal hypoattenuation suggesting steatosis, with region al focal fatty sparing near the gallbladder bed. Solid abdominal viscera and bowel show no other sign ificant findings. No mass or abnormal lymphadenopathy. IMPRESSION: No acute abnormalities on CT angiogram of the aorta. Wall thickening and mucosal hyperenhancement of the gallbladder. Please correlate clinically for sign s/symptoms of acute cholecystitis. Diffuse hepatic steatosis.
--- NOTE | 2023-12-02 12:21 | RAD REPORT ---
EXAM DESCRIPTION: US - Abdomen Exam Limited - 12/02/2023 12:04 pm CLINICAL HISTORY: ABD PAIN COMPARISON: Angio Aorta For Dissection dated 12/02/2023 TECHNIQUE: Sonographic grayscale and color flow images of the right upper abdominal quadrant were o btained. FINDINGS: The gallbladder is suboptimally distended, with numerous shadowing calculi. Positive sonog raphic Larueano's sign. No pericholecystic fluid or gallbladder wall thickening appreciated sonographic ally, although the suboptimal distention limits evaluation. The common bile duct is normal in caliber , 2 mm. The liver demonstrates no findings of intrahepatic biliary dilatation. IMPRESSION: Suboptimally distended gallbladder with numerous gallstones and positive sonographic Mur phy sign, raising concern for acute cholecystitis in the appropriate clinical setting. Common bile duct and visualized intrahepatic biliary radicles are not dilated.
--- NOTE | 2023-12-02 12:41 | ER ---
Nurse's Notes [facility] Name: Isamar Baird Age: 28 yrs Sex: Female : 1995 Arrival Date: 12/02/2023 Time: 08:25 Bed 19 Private MD: Diagnosis: Cholelithiasis with cholecystitis Presentation: 12/01 08:35 Chief complaint: Patient states: CHEST PAIN RADIATES INTO BACK STARTED AT 0200 TODAY. db PAIN HAS BEEN CONSTANT. HAS A NEW COUGH AND SORE THROAT. DENIES SOB, SWEATING OR PALPITATIONS. DENIES RECENT TRAVEL. Coronavirus screen: Client denies travel out of the [place] in the last 14 days. At this time, the client does not indicate any symptoms associated with coronavirus-19. Ebola Screen: Patient negative for fever greater than or equal to 101.5 degrees Fahrenheit, and additional compatible Ebola Virus Disease symptoms Patient denies exposure to infectious person. Patient denies travel to an Ebola-affected area in the 21 days before illness onset. No symptoms or risks identified at this time. Initial Sepsis Screen: Does the patient meet any 2 criteria? No. Patient's initial sepsis screen is negative. Does the patient have a suspected source of infection? No. Patient's initial sepsis screen is negative. Risk Assessment: Do you want to hurt yourself or someone else? Patient reports no desire to harm self or others. Onset of symptoms was December 02, 2023. 08:35 Method Of Arrival: Ambulatory db 08:35 Acuity: NAKUL 2 db Triage Assessment: 08:40 General: Appears in no apparent distress. uncomfortable, Behavior is calm, cooperative. db Pain: Complains of pain in chest. Neuro: Level of Consciousness is awake, alert, obeys commands, Oriented to person, place, time, situation. Cardiovascular: Reports chest pain. Respiratory: Airway is patent Respiratory effort is even, unlabored, Respiratory pattern is regular, symmetrical, Breath sounds are clear bilaterally. 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 - Infectious Disease History:: Denies. - Social history:: Smoking status: Patient denies any tobacco usage or history of. Screenin:00 [facility] ED Fall Risk Assessment (Adult) History of falling in the last 3 months, db including since admission No falls in past 3 months (0 pts) Confusion or Disorientation No (0 pts) Intoxicated or Sedated No (0 pts) Impaired Gait No (0 pts) Mobility Assist Device Used No (0 pt) Altered Elimination No (0 pt) Score/Fall Risk Level 0 - 2 = Low Risk Oriented to surroundings, Maintained a safe environment. Abuse screen: Denies threats or abuse. Denies injuries from another. Nutritional screening: No deficits noted. Tuberculosis screening: No symptoms or risk factors identified. Assessment: 08:56 Reassessment: Patient appears in no apparent distress at this time. Patient and/or db family updated on plan of care and expected duration. Pain level reassessed. Patient is alert, oriented x 3, equal unlabored respirations, skin warm/dry/pink. Reassessment: SEE TRIAGE FOR INITIAL ASSESSMENT. General: Appears in no apparent distress. uncomfortable, Behavior is calm, cooperative. Pain: Complains of pain in chest Pain radiates to back Pain began suddenly. Respiratory: Airway is patent Respiratory effort is even, unlabored, Respiratory pattern is regular, symmetrical, Denies shortness of breath. 09:30 Reassessment: Patient appears in no apparent distress at this time. Patient and/or db family updated on plan of care and expected duration. Pain level reassessed. Patient is alert, oriented x 3, equal unlabored respirations, skin warm/dry/pink. 10:00 Reassessment: Patient appears in no apparent distress at this time. Patient and/or db family updated on plan of care and expected duration. Pain level reassessed. Patient is alert, oriented x 3, equal unlabored respirations, skin warm/dry/pink. 11:00 Reassessment: Patient appears in no apparent distress at this time. Patient and/or db family updated on plan of care and expected duration. Pain level reassessed. Patient is alert, oriented x 3, equal unlabored respirations, skin warm/dry/pink. 12:00 Reassessment: Patient appears in no apparent distress at this time. Patient and/or db family updated on plan of care and expected duration. Pain level reassessed. Patient is alert, oriented x 3, equal unlabored respirations, skin warm/dry/pink. 13:35 Reassessment: Patient appears in no apparent distress at this time. Patient and/or db family updated on plan of care and expected duration. Pain level reassessed. Patient is alert, oriented x 3, equal unlabored respirations, skin warm/dry/pink. LYING DOWN TALKING WITH FAMILY Patient states feeling better. Patient states symptoms have improved. Vital Signs: 08:30 BP 156 / 87; Pulse 88; Resp 20; Pulse Ox 100% on R/A; db 08:35 BP 161 / 109; Pulse 95; Resp 20; Temp 98.4(O); Pulse Ox 100% ; Weight 120.66 kg (M); db Height 5 ft. 1 in. ; Pain 7/10; 09:00 BP 158 / 89; Pulse 95; Resp 20; Pulse Ox 99% on R/A; db 10:23 BP 136 / 82; Pulse 77; Resp 20; Pulse Ox 99% on R/A; db 11:13 BP 133 / 80; Pulse 86; Resp 14; Pulse Ox 100% on R/A; db 12:00 BP 157 / 93; Pulse 94; Resp 16; Pulse Ox 100% on R/A; db 13:00 BP 155 / 74; Pulse 89; Resp 16; Temp 98.2; Pulse Ox 98% ; db 08:35 Body Mass Index 50.26 (120.66 kg, 154.94 cm) db 08:35 Pain Scale: Adult db ED Course: 08:27 Patient arrived in ED. mr 08:27 [facility]ajas [facility] sb[facility] 08:27 Juan F Hinson DO is Attending Physician. sb4 08:30 Irais Reulas, RN is Primary Nurse. db 08:40 Triage completed. db 08:40 Arm band placed on Patient placed in an exam room. db 08:53 Initial lab(s) drawn, by me, sent to lab. EKG done, by ED staff, reviewed by Lorelei Barajas PA-C COVID swab sent to lab. Flu and/or RSV swab sent to lab. Strep swab sent to lab. Inserted saline lock: 20 gauge in right antecubital area, using aseptic technique. Blood collected. Flushed with 10 mL NS. 09:08 XRAY Chest (1 view) In Process Unspecified. EDMS 10:00 Allergy band placed. Bed in low position. Call light in reach. Side rails up X 1. db Provided Education on: LABS AND RADIOLOGY. Client placed on continuous cardiac and pulse oximetry monitoring. NIBP monitoring applied. gambling monitor on. Pulse ox on. NIBP on. Warm blanket given. Pillow given. 10:58 CT Aorta for Dissection In Process Unspecified. EDMS 11:50 Patient taken to ultrasound. db 12:05 Abdomen Limited US In Process Unspecified. EDMS 12:39 Sergio Moralez MD is Hospitalizing Provider. sb4 13:12 CM met with and her Bharathi at the bedside in the ED exam room. ane Patient identified by name and . Demo graphic sheet confirmed. Patient states her and her lives in a single story home. No MPOA in place at this time. Prior to admission, she states she perform ADLs independently and without physical limitations. No DME, HH, home oxygen or other medical services at this time. Community resource packet provided to patient. states her preferred plan is to return home upon discharge and her Bharathi states he will transport her home. CM team will continue to follow and coordinate care. 13:35 No provider procedures requiring assistance completed. Patient admitted, IV remains in db place. Patient maintains SpO2 saturation greater than 95% on room air. Administered Medications: 08:54 Drug: Aspirin PO Chewable Tablet 324 mg PO once; 81 mg tablets x 4 Route: PO; db 09:25 Follow up: Response: No adverse reaction db 08:54 Drug: Ativan IVP 0.5 mg IVP once Route: IVP; Site: right antecubital; db 09:25 Follow up: Response: No adverse reaction; Pain is decreased db 11:18 Drug: Rocephin IV 1 grams IV at calculated rate once; Given slow IV push per pharmacy db instructions Route: IV; Rate: calculated rate; Site: right antecubital; 11:45 Follow up: Response: No adverse reaction; IV Status: Completed infusion; IV Intake: 50mldb 13:02 Drug: metroNIDAZOLE IVPB 500 mg 100 ml IVPB at 200 ml/hr once over 30 mins Volume: 100 ll1 ml; Route: IVPB; Rate: 200 ml/hr; Infused Over: 30 mins; Site: right antecubital; 14:01 Follow up: Response: No adverse reaction; IV Status: Completed infusion; IV Intake: db 100ml Medication: 13:19 VIS not applicable for this client. db Intake: 11:45 IV: 50ml; Total: 50ml. db 14:01 IV: 100ml; Total: 150ml. db Outcome: 12:40 Decision to Hospitalize by Provider. sb4 13:35 Admitted to ER Hold. Please see [facility] for further documentation. db 13:35 Condition: stable 13:35 Instructed on the need for admit, 14:01 Patient left the ED. db Signatures: Dispatcher [employer] EDNY HarrisChristine michaels, Reg Reg mr Slime Li, RN RN ll1 Irais Ruelas, RN RN db Lorelei Barajas, PA-C PA-C sb4 Adore Hawk, RN RN cc6 Jeannie Perdomo RN RN sander
--- NOTE | 2023-12-02 12:41 | EDPHYS ---
Physician Documentation [facility] Name: Isamar Baird Age: 28 yrs Sex: Female : 1995 Arrival Date: 12/02/2023 Time: 08:25 Bed 19 Private MD: ED Physician Juan F Hinson HPI: 12/01 08:34 This 28 yrs old Female presents to ER via Unassigned with complaints of Chest sb4 Pain. 08:35 The patient or guardian reports chest pain that is located primarily in the substernal sb4 area. The pain radiates to back. Associated signs and symptoms: Pertinent positives: nausea. Modifying factors: The symptoms are alleviated by nothing. the symptoms are aggravated by nothing. The patient has not experienced similar symptoms in the past. The patient has not recently seen a physician. 08:41 left sided substernal chest pain started at 2am that radiates to the back. denies any sb4 medical problems, smoking history, recent travel. 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 - Infectious Disease History:: Denies. - Social history:: Smoking status: Patient denies any tobacco usage or history of. ROS: 08:35 Constitutional: Negative for fever, chills, and weight loss, sb4 08:35 Cardiovascular: Positive for chest pain, 08:35 All other systems are negative, Exam: 08:35 Head/Face: Normocephalic, atraumatic. Eyes: Extra-ocular motions intact. Periorbital sb4 areas with no swelling, redness, or edema. ENT: Mucous membranes moist. Cardiovascular: Regular rate and rhythm with a normal S1 and S2. Respiratory: Lungs have equal breath sounds bilaterally, clear to auscultation and percussion. No rales, rhonchi or wheezes noted. No increased work of breathing, no retractions or nasal flaring. Abdomen/GI: Soft, non-tender, no distension. Skin: Warm, dry with normal turgor. Normal color with no rashes, no lesions, and no evidence of cellulitis. MS/ Extremity: Pulses equal, no cyanosis. Neurovascular intact. Full, normal range of motion. 08:35 Constitutional: The patient appears alert, awake, obese, tearful Vital Signs: 08:30 BP 156 / 87; Pulse 88; Resp 20; Pulse Ox 100% on R/A; db 08:35 BP 161 / 109; Pulse 95; Resp 20; Temp 98.4(O); Pulse Ox 100% ; Weight 120.66 kg (M); db Height 5 ft. 1 in. ; Pain 7/10; 09:00 BP 158 / 89; Pulse 95; Resp 20; Pulse Ox 99% on R/A; db 10:23 BP 136 / 82; Pulse 77; Resp 20; Pulse Ox 99% on R/A; db 11:13 BP 133 / 80; Pulse 86; Resp 14; Pulse Ox 100% on R/A; db 12:00 BP 157 / 93; Pulse 94; Resp 16; Pulse Ox 100% on R/A; db 13:00 BP 155 / 74; Pulse 89; Resp 16; Temp 98.2; Pulse Ox 98% ; db 08:35 Body Mass Index 50.26 (120.66 kg, 154.94 cm) db 08:35 Pain Scale: Adult db MDM: 08:29 Patient medically screened. sb4 12:38 Data reviewed: vital signs, nurses notes, lab test result(s), radiologic studies, and sb4 as a result, I will admit patient. Consideration of Admission/Observation Patient was admitted/placed on observation. 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 Care significantly affected by the following chronic conditions: Obesity. Counseling: I had a detailed discussion with the patient and/or guardian regarding the historical points, exam findings, and any diagnostic results supporting the discharge/admit diagnosis, lab results, radiology results, the need for further work-up and treatment in the hospital. 12/01 08:34 Order name: Basic Metabolic Panel; Complete Time: 09:18 sb4 12/01 08:34 Order name: CBC with Diff; Complete Time: 08:59 sb4 12/01 08:34 Order name: D-Dimer; Complete Time: 09:09 sb4 12/01 08:34 Order name: LFT's; Complete Time: 09:18 sb4 12/01 08:34 Order name: Magnesium; Complete Time: 09:18 sb4 12/01 08:34 Order name: NT PRO-BNP; Complete Time: 09:18 sb4 12/01 08:34 Order name: PT-INR; Complete Time: 09:09 sb4 12/01 08:34 Order name: Troponin HS; Complete Time: 09:18 sb4 12/01 08:34 Order name: SARS RAPID; Complete Time: 09:17 sb4 12/01 08:34 Order name: Flu; Complete Time: 09:46 sb4 12/01 08:34 Order name: Strep sb4 12/01 09:17 Order name: Throat Culture EDMS 12/01 09:19 Order name: UAM; Complete Time: 10:47 sb4 12/01 09:19 Order name: Test, Urine; Complete Time: 10:48 sb4 12/01 08:34 Order name: XRAY Chest (1 view); Complete Time: 09:22 sb4 12/01 09:19 Order name: CT Aorta for Dissection; Complete Time: 11:44 sb4 12/01 11:45 Order name: Abdomen Limited US; Complete Time: 12:28 sb4 12/01 08:34 Order name: EKG; Complete Time: 08:34 sb4 12/01 08:34 Order name: Cardiac monitoring; Complete Time: 08:56 sb4 12/01 08:34 Order name: EKG - Nurse/Tech; Complete Time: 08:56 sb4 12/01 08:34 Order name: IV Saline Lock; Complete Time: 08:50 sb4 12/01 08:34 Order name: Labs collected and sent; Complete Time: 08:50 sb4 12/01 08:34 Order name: O2 Per Protocol; Complete Time: 08:50 sb4 12/01 08:34 Order name: O2 Sat Monitoring; Complete Time: 08:50 sb4 12/01 12:38 Order name: NPO; Complete Time: 12:52 sb4 EC:52 Rate is 89 beats/min. Rhythm is regular, Sinus arrythmia. ID interval is normal at 148 sb4 msec. QRS interval is normal at 82 msec. QT interval is normal at 380 msec. No Q waves. T waves are Normal. No ST changes noted. Clinical impression: No evidence of ischemia. Interpreted by me. Reviewed by me. Administered Medications: 08:54 Drug: Aspirin PO Chewable Tablet 324 mg PO once; 81 mg tablets x 4 Route: PO; db 09:25 Follow up: Response: No adverse reaction db 08:54 Drug: Ativan IVP 0.5 mg IVP once Route: IVP; Site: right antecubital; db 09:25 Follow up: Response: No adverse reaction; Pain is decreased db 11:18 Drug: Rocephin IV 1 grams IV at calculated rate once; Given slow IV push per pharmacy db instructions Route: IV; Rate: calculated rate; Site: right antecubital; 11:45 Follow up: Response: No adverse reaction; IV Status: Completed infusion; IV Intake: 50mldb 13:02 Drug: metroNIDAZOLE IVPB 500 mg 100 ml IVPB at 200 ml/hr once over 30 mins Volume: 100 ll1 ml; Route: IVPB; Rate: 200 ml/hr; Infused Over: 30 mins; Site: right antecubital; 14:01 Follow up: Response: No adverse reaction; IV Status: Completed infusion; IV Intake: db 100ml Disposition: 11:00 I was immediately available on-site in the Emergency Department for consultation in the ms3 care of the patient. Disposition Summary: 12/02/23 12:40 Hospitalization Ordered Notes: Hospitalization Status: Inpatient Admission sb4 Provider: Sergio Moralez sbGanga Location: Telemetry/[facility] (Inpatient) sb4 Condition: Fair sb4 Problem: new sb4 Symptoms: have improved sb4 Bed/Room Type: Standard sb4 Room Assignment: 206(12/02/23 12:56) ja Diagnosis - Cholelithiasis with cholecystitis sb4 Discharge Instructions: - Discharge Summary Sheet sb4 - Nonspecific Chest Pain, Adult, Rupg-iw-Kyaa sb4 - How to Take Your Blood Pressure, Vkul-jm-Goae sb4 - Viral Respiratory Infection, Dvaw-Yd-Vhcq sb4 Forms: - Medication Reconciliation Form sb4 - SBAR form sb4 - Leadership Thank You Letter sb4 Signatures: Dispatcher [employer] Saeid Gallego RN RN ja1 Slime Li RN RN ll1 Juan F Hinson DO DO ms3 Irais Ruelas RN RN db Brown, Sophia, PA-C PAHamzah sb4 Corrections: (The following items were deleted from the chart) 08:35 08:34 BASIC METABOLIC PANEL+C.LAB.BRZ ordered. EDMS EDMS 08:35 08:34 CBC+H.LAB.BRZ ordered. EDMS EDMS 08:35 08:34 D-DIMER+COAG.LAB.BRZ ordered. EDMS EDMS 08:35 08:34 HEPATIC FUNCTION+C.LAB.BRZ ordered. EDMS EDMS 08:35 08:34 MAGNESIUM+C.LAB.BRZ ordered. EDMS EDMS 08:35 08:34 PROBNP+C.LAB.BRZ ordered. EDMS EDMS 08:35 08:34 PROTIME (+INR)+COAG.LAB.BRZ ordered. EDMS EDMS 08:35 08:34 Troponin High Sensitivity+C.LAB.BRZ ordered. EDMS EDMS 08:35 08:34 SARS-COV-2 Antigen Rapid+I.LAB.BRZ ordered. EDMS EDMS 08:35 08:34 Influenza Screen (A \T\ B)+BA.LAB.BRZ ordered. EDMS EDMS 08:35 08:34 Group A Streptococcus Rapid Sc+BA.LAB.BRZ ordered. EDMS EDMS 09:20 09:20 Angio Aorta For Dissection+CT.RAD.BRZ ordered. EDMS EDMS 09:20 09:20 Urinalysis W/Microscopic+U.LAB.BRZ ordered. EDMS EDMS 09:20 09:20 Test, Urine+UC.LAB.BRZ ordered. EDMS EDMS 12:56 12:40 sb4 ja1
[2023-12-02] MEDS ORDERED: METRONIDAZOLE 500mg IVPB 500 MG/100 ML BAG IV ONE (12:53)
[2023-12-02] MEDS ORDERED: ONDANSETRON 4 MG/2 ML VIAL IV PRN (14:38)
[2023-12-02 14:44] VITALS: BMI 50.2
[2023-12-02] MEDS: NA CHLORIDE 0.9% 1,000 ML IV SCH (15:35)
[2023-12-02] MEDS: METRONIDAZOLE 500mg IVPB 500 MG/100 ML BAG IV SCH (17:15)
[2023-12-03] MEDS: MORPHINE 4 MG/ML SYR IV PRN (05:13)
[2023-12-03] MEDS ORDERED: ROCURONIUM 50 MG/5 ML VIAL IV ONE (07:13)
[2023-12-03] MEDS ORDERED: propofoL 200 MG/20 ML VIAL IV ONE ×2 (07:13→07:38)
[2023-12-03] MEDS ORDERED: dexAMETHasone 10 MG/ML VIAL ONE (07:13)
[2023-12-03] MEDS ORDERED: KETOROLAC 30 MG/ML INJ ONE (07:13)
[2023-12-03] MEDS ORDERED: LIDOCAINE 2% MPF 5 ML VIAL ONE (07:13)
[2023-12-03] MEDS ORDERED: ONDANSETRON 4 MG/2 ML VIAL ONE (07:13)
[2023-12-03] MEDS ORDERED: FENTANYL CITR 100 MCG/2 ML ONE ×3 (07:13→09:07)
[2023-12-03] MEDS ORDERED: MIDAZOLAM HCL 2 MG/2 ML INJ ONE ×2 (07:13→07:39)
[2023-12-03] MEDS: SUGAMMADEX SODIUM 200 MG/2 ML VIAL IV ONE (07:45)
[2023-12-03] MEDS: SUCCINYLCHOLINE 20 MG/ML (10 ML) IV ONE (07:46)
--- NOTE | 2023-12-03 07:48 | P.HP ---
Certification for Inpatient Patient admitted to: Inpatient Patient will require the following post-hospital care: None Practitioner: I am a practitioner with admitting privileges, knowledge of patient current condition, hospital course, and medical plan of care. Services: Services provided to patient in accordance with Admission requirements found in Title 42 Section 412.3 of the Code of Federal Regulations Patient History Date of Service: 12/02/23 Reason for admission: 2 History of Present Illness: 8 y/o female with one day hx of epigastic pain radiating to the back assocciated with nausea . intractable. Allergies Penicillins Allergy (Mild, Verified 12/06/16 22:14) Hives Home Medications: NK [No Home Meds] 12/02/23 - Past Medical/Surgical History Diabetic: Yes -: Obesity -: GDM on insulin Past Surgical History: Patient denies surgical history - Social History Smoking Status: Never smoker Alcohol use: No CD- Drugs: No Caffeine use: No Place of Residence: Home Review of Systems General: Malaise ENT: Unremarkable Respiratory: Unremarkable Cardiovascular: Unremarkable Gastrointestinal: Nausea, Abdominal Pain, Distention, As per HPI Genitourinary: Unremarkable Musculoskeletal: Unremarkable Integumentary: Unremarkable Neurological: Unremarkable Physical Examination - Vital Signs Temperature: 97.8 F Blood Pressure: 149/53 Pulse: 85 Respirations: 16 Pulse Ox (%): 96 - Physical Exam General: Alert, Oriented x3 HEENT: PERRLA, EOMI Neck: Supple Respiratory: Clear to auscultation bilaterally Cardiovascular: No edema, Normal pulses Gastrointestinal: Tenderness (+ murphys) Musculoskeletal: No erythema, No tenderness, No warmth Integumentary: No rashes, No breakdown, No erythema, No warmth, No cyanosis Neurological: Normal speech External genitalia: Deferred Rectal: Deferred - Studies Laboratory Data (last 24 hrs) 12/02/23 12/02/23 12/02/23 08:40 08:40 08:40 WBC 11.40 H Hgb 12.9 Hct 39.4 Plt Count 311 PT 12.3 INR 1.10 Sodium 135 L Potassium 4.0 BUN 11 Creatinine 0.57 Glucose 143 H Magnesium 1.8 Total Bilirubin 0.3 AST 31 ALT 74 H Alkaline Phosphatase 74 Microbiology Data (last 24 hrs): 12/02/23 08:45 Throat Group A Streptococcus Rapid Screen - Final 12/02/23 08:45 Nasopharnyx Influenza Type A Antigen Screen - Final 12/02/23 08:45 Nasopharnyx Influenza Type B Antigen Screen - Final Female Exam - Breasts Breasts: Other (deferred) - Female Pelvic Vagina: Other (deferred) Assessment and Plan - Plan Acute cholecystitis, symptomatic cholelithiasis, acute RUQ abd pain Laparoscopic possible open cholecystectomy with BAR including but not limited to infection, bleeding, damage to adjacent structures, choledocholithiasis, pancreatitis, [place] even . Pt understood this may not alleviated symptoms and she may need more than one surgical intervention. Discharge Plan: Home Plan to discharge in: 48 Hours - Advance Directives Does patient have a Living Will: No Does patient have a Durable POA for Healthcare: No
[2023-12-03] MEDS: CEFTRIAXONE 1,000 MG in NA CHLORIDE 0.9% 50 ML IVPB SCH (07:51)
[2023-12-03] MEDS: Ringers Lactate 1,000 ML IV ONE (07:52)
--- NOTE | 2023-12-03 09:37 | P.BOP ---
Preoperative diagnosis: Acute cholecystitis, symptomatic cholelithiasis, intractable RUQ abd pain Postoperative diagnosis: same Primary procedure: Laparoscopic cholecystectomy Estimated blood loss: <10cc Specimen: gb Findings: as above Anesthesia: General Complications: None Transferred to: Recovery Room Condition: Good
[2023-12-03] MEDS ORDERED: Mastisol Adhesive Liq ONE (09:38)
[2023-12-03 10:28] VITALS: O2SAT 96
--- NOTE | 2023-12-03 12:03 | OP ---
Date of Procedure: 12/03/2023 Surgeon: Sergio Moralez MD Preoperative Diagnoses: Acute cholecystitis, symptomatic cholelithiasis, and intractable right upper quadrant abdominal pain. Postoperative Diagnoses: Acute cholecystitis, symptomatic cholelithiasis, and intractable right uppe r quadrant abdominal pain. Procedure: Laparoscopic cholecystectomy. Estimated Blood Loss: Less than 10 mL. Specimen: Gallbladder. Anesthesia: General plus local. Finding: Acute cholecystitis, as above. Indication: This is a case of a female who comes to us with acute abdominal pain. Fully explained t he benefits, alternatives, and risks of laparoscopic possible open cholecystectomy which include, but not limited to infection, bleeding, damage to adjacent structures, anesthesia complication, choledoc holithiasis, bile leak, pancreatitis, CT, and . She also understands this may not relieve the s ymptoms. She might need more than one surgical intervention. She understood, signed a consent. She was also explained the importance of losing some weight. Description Of Procedure: The patient was brought to the operating room, placed supine position. An esthesia was done without complication. Abdominal area was prepped and draped in sterile fashion. M arcaine 0.5% was injected for local anesthetic, followed by sharp incision of the skin in the infraum bilical region. Incision was carried down to fascia, which was opened under direct vision. Peritone um was encountered, opened under direct vision. Vicryl #1 placed inside of the fascia. Rhianna troca r was carefully introduced. Pneumoperitoneum was obtained. I placed 3 more trocars, 5 mm each one o f them, 1 in epigastric area, 2 in the right upper quadrant using same technique, which consisted of local anesthetic, sharp incision of the skin and introduction of the trocars under direct vision. Th is allowed me to put a grasper in the fundus of the gallbladder, another grasper in the infundibulum, retracting the gallbladder in the inferolateral fashion exposing the triangle of Calot, obtaining cr itical view. After that, we proceeded to identify the cystic duct and cystic artery and clearly isol ated free circumferentially and a connection between those and the gallbladder were clearly identifie d. I proceeded to ligate those by using at least 3 clips proximal, 1 clip distal, ligation in middle . Same was done with the cystic artery, no bile leak, no bleeding. The gallbladder was removed from liver using Bovie cauterizer and removed from abdominal cavity using EndoCatch through the umbilical incision. The area was inspected once again, no bile leak, no bleeding. I have to mention there wa s some adhesions of the omentum to the liver and liver to the anterior abdominal wall that have to be taken care of with the help of LigaSure. This was done before the cholecystectomy. At that moment, we take a look at the area. No bile leak. No bleeding. Clips were intact. We proceeded to remove the trocars under direct vision. Deflated the pneumoperitoneum. Closed the fascia with #1 Vicryl. Irrigated the subcutaneous tissue, closed with 3-0 chromic and skin in a subcuticular fashion with 3 -0 chromic and Steri-Strips on top. Disposition: Home. Activity: As tolerated, no heavy lifting. Follow up in my office in 1 week. Call for appointment [phone]. Keep area dry for 48 hours, then may shower. Keep Steri-Strips intact. STEFAN/SERENA Voice ID: [id number] Report ID: [id number]
[2023-12-03 12:04] VITALS: BP 133/75; TEMP 98
[2023-12-03] MEDS: HYDROCODONE/APAP 5/325 MG TAB PO PRN (12:58)
--- NOTE | 2023-12-03 17:49 | EKG ---
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
[2023-12-03] MEDS ORDERED: CIPROFLOXACIN HCL 500 MG TAB PO SCH (21:00)
== END 2023-12-03 13:56 | disposition home or self-care (01) | DRG 418 ==
LOC: ER 08:25 → ERHOLD 12:46 → 2ND 13:51
PROVIDERS: ADMIT Surgery; ATTEND Surgery
PROC: 0FT44ZZ Resection of Gallbladder, Percutaneous Endoscopic Approach (ICD-10-PCS; principal; 2023-12-03 08:30)
DX: K80.00 Calculus of gallbladder with acute cholecystitis without obstruction (principal); Z68.43 Body mass index [BMI] 50.0-59.9, adult; E66.9 Obesity, unspecified; E11.9 Type 2 diabetes mellitus without complications; Z88.0 Allergy status to penicillin; Z11.52 Encounter for screening for COVID-19
CPT/HCPCS: 36415; 71045; 71275; 74175; 76705; 80048; 80076; 81001; 81025; 83735; 83880; 84484; 85025; 85379; 85610; 87070; 87081; 87804; 87811; 88304; 93005; 94010; 96365; 96367; 96375; 99285; J0696; J1100; J2001; J2250; J2405; J2704; J3010; J7030; J7120; Q9967

== ENCOUNTER 2024-05-16 22:56 | Emergency (ER) | payer SELFPAY ==
[2024-05-16] MEDS ORDERED: ONDANSETRON 4 MG/2 ML VIAL ONE (23:51)
[2024-05-16] MEDS ORDERED: IBUPROFEN 400 MG TAB ONE (23:52)
[2024-05-16] MEDS ORDERED: AZITHROMYCIN 250 MG TAB ONE (23:52)
[2024-05-16] MEDS ORDERED: BENZONATATE 100 MG CAP PO ONE (23:52)
[2024-05-16] MEDS ORDERED: NA CHLORIDE 0.9% 1,000 ML ONE (23:53)
[2024-05-16] MEDS ORDERED: GUAIFENESIN/DM 5 ML UCUP ONE (23:53)
[2024-05-16 23:55] LABS: Absolute Eosinophils 0.4 K/uL (0-0.5); Absolute Lymphocytes (CBC) 3.6 K/uL (0.7-4.9); Absolute Monocytes 0.8 K/uL (0.1-1.3); Absolute Neutrophil 6.7 K/uL (1.8-8.0); Basophils % 0.4 % (0-1.3); Eosinophils % 3.3 % (0-4.4); Hemoglobin 13.7 g/dL (12.0-15.0); MCH 29.3 pg (27.0-35.0); MCHC 34.2 g/dL (32.0-36.0); MCV 85.7 fL (80-100); MPV 8.6 fL (7.6-11.3); Monocytes % 6.7 % (3.3-12.3); Neutrophils % 58.6 % (41.7-73.7); Nucleated Red Blood Cells % 0.1 % (0-0); Platelets 338 thou/uL (152-406); RBC Red Blood Cell Count 4.68 M/uL (3.86-4.86); Red Cell Distribution Width 13.8 % (12.1-15.2)
[2024-05-17 00:37] LABS: ALT/SGPT 76 U/L (13-56); AST/SGOT 32 U/L (15-37); Albumin 3.2 g/dL (3.4-5.0); Albumin/Globulin Ratio 0.7 (1.1-1.8); Alkaline Phosphatase 76 U/L (45-117); Anion Gap 10.2 mEq/L (5.0-15.0); BUN Blood Urea Nitrogen 15 mg/dL (7-18); Bicarbonate 24 mEq/L (21-32); Bilirubin Total 0.3 mg/dL (0.2-1.0); Globulin 4.5 g/dL (2.3-3.5); Glomerular Filtration Rate 120 ml/min (=/>90); Glucose Level 158 mg/dL (74-106); Potassium 4.2 mEq/L (3.5-5.1); Protein, Total 7.7 g/dL (6.4-8.2); Sodium Level 134 mEq/L (136-145)
[2024-05-17 00:40] LABS: Bilirubin Direct < 0.2 mg/dL (0-0.2); Bilirubin Indirect, Calculated 0.1 mg/dL (0.2-0.8); Troponin High Sensitivity < 3.0 pg/mL (<58.9)
[2024-05-17 00:41] LABS: Specific Gravity 1.024 (1.005-1.030)
--- NOTE | 2024-05-17 01:22 | EDPHYS ---
Physician Documentation [facility] Name: Isamar Baird Age: 29 yrs Sex: Female : 1995 Arrival Date: 05/16/2024 Time: 22:56 Bed 8 Private MD: ED Physician Mauri Pacheco HPI: 05/16 23:10 This 29 yrs old Female presents to ER via Unassigned with complaints of Chest sp4 Wall Pain, Shortness Of Breath. 23:45 29-year-old female presents with acute chest wall pain and shortness of breath sp4 associated with cough for the past 5 days.. 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 - Infectious Disease History:: Denies. - Social history:: Smoking status: Patient denies any tobacco usage or history of. - Family history:: not pertinent. ROS: 23:45 Constitutional: Negative for fever, chills, and weight loss, positive chest wall pain, sp4 positive cough, positive yellow sputum, positive shortness of breath 23:45 All other systems are negative, Exam: 23:45 Constitutional: This is a well developed, well nourished patient who is awake, alert, sp4 and in no acute distress. Head/Face: Normocephalic, atraumatic. Eyes: Pupils equal round and reactive to light, extra-ocular motions intact. Lids and lashes normal. Conjunctiva and sclera are not injected. Cornea within normal limits. Periorbital areas with no swelling, redness, or edema. ENT: Nares patent. No nasal discharge, no septal abnormalities noted. Tympanic membranes are normal and external auditory canals are clear. Oropharynx with no redness, swelling, or masses, exudates, or evidence of obstruction, uvula midline. Mucous membranes moist. Neck: Trachea midline, no thyromegaly or masses palpated, and no cervical lymphadenopathy. Supple, full range of motion without nuchal rigidity, or vertebral point tenderness. Chest/axilla: Normal chest wall appearance and motion. Nontender with no deformity. No lesions are appreciated. Cardiovascular: Positive tachycardia. No gallops, murmurs, or rubs. Normal PMI, no JVD. No pulse deficits. Respiratory: Lungs have equal breath sounds bilaterally, clear to auscultation and percussion. No rales, rhonchi or wheezes noted. No increased work of breathing, no retractions or nasal flaring. Abdomen/GI: Soft, with normal bowel sounds. No distension or tympany. No guarding or rebound. No evidence of tenderness throughout. Back: No spinal tenderness. No costovertebral tenderness. Skin: Warm, dry with normal turgor. Normal color with no rashes, no lesions, and no evidence of cellulitis. MS/ Extremity: Pulses equal, no cyanosis. Neurovascular intact. Full, normal range of motion. Neuro: Awake and alert, GCS 15, oriented to person, place, time, and situation. Cranial nerves II-XII grossly intact. Motor strength 5/5 in all extremities. Sensory grossly intact. Psych: Awake, alert, with orientation to person, place and time. Behavior, mood, and affect are within normal limits 23:46 ECG was reviewed by the Attending Physician. EKG at 2341 sinus tachycardia rate 117 sp4 Vital Signs: 23:12 BP 154 / 86; Pulse 121; Resp 20 S; Temp 98.8(O); Pulse Ox 99% on R/A; Weight 125.19 kg; ha1 Height 5 ft. 1 in. ; 05/17 00:15 BP 148 / 84; Pulse 110; Resp 19; Pulse Ox 98% on R/A; dd2 01:12 BP 141 / 82; Pulse 101; Resp 18; Pulse Ox 99% on R/A; dd2 01:55 BP 144 / 79; Pulse 97; Resp 17; Temp 98.2(O); Pulse Ox 99% on R/A; dd2 05/16 23:12 Body Mass Index 52.15 (125.19 kg, 154.94 cm) ha1 Monique Coma Score: 05/16 23:36 Eye Response: spontaneous(4). Motor Response: obeys commands(6). Verbal Response: dd2 oriented(5). Total: 15. 23:45 Eye Response: spontaneous(4). Motor Response: obeys commands(6). Verbal Response: sp4 oriented(5). Total: 15. MDM: 23:12 Medical Screening Exam initiated sp4 05/17 02:29 Differential diagnosis: acute pericarditis, anxiety, chest wall pain, esophagitis, sp4 gastritis. HEART Score: History: Slightly Suspicious (0), ECG: Normal (0), Age: < or = 45 years (0), Risk Factors: No Risk Factors Known (0), Troponin: < or = 1 x Normal Limit (0), Total Score = 0. 02:29 Data reviewed: vital signs, nurses notes, old medical records, lab test result(s), EKG, sp4 radiologic studies, plain films. ED course: Patient stable for discharge home.. 02:42 ED course: EXAM DESCRIPTION: Chest Single View RadLex: XR CHEST 1 VIEW CLINICAL sp4 HISTORY: 29 years Female, CHEST PAIN COMPARISON: None. FINDINGS: Single portable AP upright view of the chest. Exam is slightly limited due to soft tissue attenuation. Normal size of the cardiac silhouette. No visualized consolidation, pleural effusion, or pneumothorax. No acute osseous abnormality. IMPRESSION: No acute radiographic abnormality. 05/16 23:11 Order name: Basic Metabolic Panel; Complete Time: 00:59 4 05/16 23:11 Order name: CBC with Diff; Complete Time: 00:07 4 05/16 23:11 Order name: LFT's; Complete Time: 00:59 4 05/16 23:11 Order name: Troponin HS; Complete Time: 00:59 4 05/16 23:11 Order name: Test, Urine; Complete Time: 00:59 4 05/16 23:21 Order name: Influenza Screen (a \T\ B); Complete Time: 00:59 4 05/16 23:22 Order name: BNP; Complete Time: 00:20 sp4 05/16 23:11 Order name: XRAY Chest (1 view) 4 05/16 23:11 Order name: EKG; Complete Time: 23:11 4 05/16 23:11 Order name: Cardiac monitoring; Complete Time: 23:37 4 05/16 23:11 Order name: EKG - Nurse/Tech; Complete Time: 23:37 4 05/16 23:11 Order name: IV Saline Lock; Complete Time: 23:37 4 05/16 23:11 Order name: Labs collected and sent; Complete Time: 23:38 sp4 05/16 23:11 Order name: O2 Per Protocol; Complete Time: 23:38 sp4 05/16 23:11 Order name: O2 Sat Monitoring; Complete Time: 23:38 sp4 EC/01 23:47 Rate is 117 beats/min. Rhythm is regular, Sinus tachycardia. QRS Sharon is Normal. NC sp4 interval is normal. QRS interval is normal. QT interval is normal. No Q waves. T waves are Normal. No ST changes noted. Clinical impression: No evidence of ischemia. Interpreted by me. Reviewed by me. Administered Medications: 05/17 00:05 Drug: Dextromethorphan-Guaifenesin PO Liquid 10 mg-100 mg/5 mL 20 ml PO once Route: PO; dd2 00:35 Follow up: Response: No adverse reaction dd2 00:05 Drug: NS 0.9% IV 1000 ml IV at 1000 ml once; to be given as a bolus over 60 minutes dd2 Route: IV; Rate: 1000 ml; Site: right antecubital; 00:20 Follow up: Response: No adverse reaction dd2 01:15 Follow up: IV Status: Completed infusion; IV Intake: 1000ml dd2 00:05 Drug: Ondansetron IVP 8 mg IVP once; over 2 minutes Route: IVP; Site: right antecubital;dd2 00:20 Follow up: Response: No adverse reaction dd2 00:05 Drug: Tessalon Perle PO 200 mg PO once Route: PO; dd2 00:35 Follow up: Response: No adverse reaction dd2 00:05 Drug: AZITHromycin PO 500 mg PO once Route: PO; dd2 00:35 Follow up: Response: No adverse reaction dd2 00:05 Drug: Ibuprofen PO 800 mg PO once Route: PO; dd2 00:35 Follow up: Response: No adverse reaction dd2 Disposition Summary: 05/17/24 01:22 Discharge Ordered Notes: Location: Home sp4 Problem: new sp4 Symptoms: have improved sp4 Condition: Stable sp4 Diagnosis - Acute pharyngitis, unspecified sp4 - Cough sp4 - Dehydration sp4 Followup: sp4 - With: Martin Rod DO - When: 7 - 10 days - Reason: Recheck today's complaints Discharge Instructions: - Discharge Summary Sheet sp4 - Cough, Adult sp4 Forms: - Patient Portal Instructions sp4 Prescriptions: - dextromethorphan-guaifenesin 20-400 mg Oral tablet - take 1 tablet ORAL route every 6 hours PRN cough; 40 tablet; Refills: 0, sp4 Product Selection Permitted - Zithromax Z-Joseph 250 mg Oral Tablet - take 1 tablet ORAL route as directed for 5 days Day 1 - take two (2) tablets sp4 one time. Day 2, 3, 4 , 5 take one (1) tablet once daily.; 6 tablet; Refills: 0, Product Selection Permitted - promethazine 25 mg Oral tablet - take 1 tablet ORAL route every 6 hours As needed PRN nausea; 30 tablet; sp4 Refills: 0, Product Selection Permitted Signatures: Dispatcher [employer] Becca Garcia RN RN ha1 Mauri Pacheco MD MD sp4 EDVIN POLANCO RN RN dd2
--- NOTE | 2024-05-17 01:22 | ER ---
Nurse's Notes [facility] Name: Isamar Baird Age: 29 yrs Sex: Female : 1995 Arrival Date: 05/16/2024 Time: 22:56 Bed 8 Private MD: Diagnosis: Acute pharyngitis, unspecified;Cough;Dehydration Presentation: 05/16 23:12 Chief complaint: Patient states: COUGH AND SHORTNESS OF BREATH FOR FIVE DAYS. ha1 23:12 Coronavirus screen: Client denies travel out of the [place] in the last 14 days. Ebola ha1 Screen: No symptoms or risks identified at this time. Initial Sepsis Screen: Does the patient meet any 2 criteria? No. Patient's initial sepsis screen is negative. Does the patient have a suspected source of infection? No. Patient's initial sepsis screen is negative. Risk Assessment: Do you want to hurt yourself or someone else? Patient reports no desire to harm self or others. Onset of symptoms was May 16, 2024. 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 - Infectious Disease History:: Denies. - Social history:: Smoking status: Patient denies any tobacco usage or history of. - Family history:: not pertinent. Screenin:36 [facility] ED Fall Risk Assessment (Adult) History of falling in the last 3 months, dd2 including since admission No falls in past 3 months (0 pts) Confusion or Disorientation No (0 pts) Intoxicated or Sedated No (0 pts) Impaired Gait No (0 pts) Mobility Assist Device Used No (0 pt) Altered Elimination No (0 pt) Score/Fall Risk Level 0 - 2 = Low Risk Oriented to surroundings, Maintained a safe environment, Educated pt \T\ family on fall prevention, incl call for assistance when getting out of bed, Assessed \T\ reinforced patient's understanding of fall precautions, Hourly rounding (assess needs \T\ fall precautionary measures) done. Abuse screen: Denies threats or abuse. Nutritional screening: No deficits noted. Tuberculosis screening: No symptoms or risk factors identified. Assessment: 23:36 General: Appears in no apparent distress. uncomfortable, Behavior is calm, cooperative, dd2 appropriate for age. Pain: Complains of pain in chest Pain does not radiate. Pain currently is 3 out of 10 on a pain scale. Quality of pain is described as burning, Pain began 5 DAYS WITH COUGHING. Neuro: No deficits noted. Level of Consciousness is awake, alert, obeys commands, Oriented to person, place, time, situation, Appropriate for age. Cardiovascular: Reports chest pain, Heart tones S1 S2 present Patient's skin is warm and dry. Rhythm is sinus tachycardia. Respiratory: Reports shortness of breath at rest on exertion cough that is non-productive, persistent Airway is patent Respiratory effort is even, unlabored, Respiratory pattern is regular, symmetrical, Breath sounds are clear bilaterally. Onset: The symptoms/episode began/occurred X5 DAYS AGO, the patient has mild shortness of breath. GI: No deficits noted. No signs and/or symptoms were reported involving the gastrointestinal system. Abdomen is non-distended, obese, Abd is non tender X 4 quads. : No deficits noted. No signs and/or symptoms were reported regarding the genitourinary system. EENT: Nares are clear Reports nasal congestion. Derm: No deficits noted. No signs and/or symptoms reported regarding the dermatologic system. Musculoskeletal: No deficits noted. No signs and/or symptoms reported regarding the musculoskeletal system. Circulation, motion, and sensation intact. Range of motion: intact in all extremities. Vital Signs: 23:12 BP 154 / 86; Pulse 121; Resp 20 S; Temp 98.8(O); Pulse Ox 99% on R/A; Weight 125.19 kg; ha1 Height 5 ft. 1 in. ; 05/17 00:15 BP 148 / 84; Pulse 110; Resp 19; Pulse Ox 98% on R/A; dd2 01:12 BP 141 / 82; Pulse 101; Resp 18; Pulse Ox 99% on R/A; dd2 01:55 BP 144 / 79; Pulse 97; Resp 17; Temp 98.2(O); Pulse Ox 99% on R/A; dd2 05/16 23:12 Body Mass Index 52.15 (125.19 kg, 154.94 cm) ha1 Monique Coma Score: 02 23:36 Eye Response: spontaneous(4). Motor Response: obeys commands(6). Verbal Response: dd2 oriented(5). Total: 15. 23:45 Eye Response: spontaneous(4). Motor Response: obeys commands(6). Verbal Response: sp4 oriented(5). Total: 15. ED Course: 23:01 Patient arrived in ED. jj6 23:10 Mauri Pacheco MD is Attending Physician. sp4 23:23 EDVIN POLANCO, SPENSER is Primary Nurse. dd2 23:27 Inserted saline lock: 20 gauge in right antecubital area, using aseptic technique. vk Blood collected. 23:33 Triage completed. ha1 23:36 No provider procedures requiring assistance completed. dd2 23:36 Patient has correct armband on for positive identification. Bed in low position. Call dd2 light in reach. Side rails up X 1. Client placed on continuous cardiac and pulse oximetry monitoring. NIBP monitoring applied. door trimmer on. Door closed. Noise minimized. Warm blanket given. Pillow given. Verbal reassurance given. 23:37 BNP Sent. vk 23:38 Basic Metabolic Panel Sent. vk 23:38 CBC with Diff Sent. vk 23:38 LFT's Sent. vk 23:38 Troponin HS Sent. vk 23:57 XRAY Chest (1 view) In Process Unspecified. EDMS 02 00:06 Test, Urine Sent. dd2 00:06 Initial lab(s) drawn, by ED staff, sent to lab. EKG done, by ED staff, reviewed by dd2 EDVIN POLANCO RN Flu and/or RSV swab sent to lab. Patient maintains SpO2 saturation greater than 95% on room air. 01:21 Martin Rod DO is Referral Physician. sp4 01:55 IV discontinued, intact, bleeding controlled, No redness/swelling at site. Pressure dd2 dressing applied. 01:55 Provided Education on: D/C EDUCATION, MEDICATIONS AND F/U. dd2 Administered Medications: 00:05 Drug: Dextromethorphan-Guaifenesin PO Liquid 10 mg-100 mg/5 mL 20 ml PO once Route: PO; dd2 00:35 Follow up: Response: No adverse reaction dd2 00:05 Drug: NS 0.9% IV 1000 ml IV at 1000 ml once; to be given as a bolus over 60 minutes dd2 Route: IV; Rate: 1000 ml; Site: right antecubital; 00:20 Follow up: Response: No adverse reaction dd2 01:15 Follow up: IV Status: Completed infusion; IV Intake: 1000ml dd2 00:05 Drug: Ondansetron IVP 8 mg IVP once; over 2 minutes Route: IVP; Site: right antecubital;dd2 00:20 Follow up: Response: No adverse reaction dd2 00:05 Drug: Tessalon Perle PO 200 mg PO once Route: PO; dd2 00:35 Follow up: Response: No adverse reaction dd2 00:05 Drug: AZITHromycin PO 500 mg PO once Route: PO; dd2 00:35 Follow up: Response: No adverse reaction dd2 00:05 Drug: Ibuprofen PO 800 mg PO once Route: PO; dd2 00:35 Follow up: Response: No adverse reaction dd2 Medication: 05/16 23:36 VIS not applicable for this client. dd2 Intake: 05/17 01:15 IV: 1000ml; Total: 1000ml. dd2 Outcome: 01:22 Discharge ordered by . sp4 01:55 Discharged to home ambulatory, dd2 01:55 Condition: improved 01:55 Discharge instructions given to patient, Instructed on discharge instructions, follow up and referral plans. medication usage, Demonstrated understanding of instructions, follow-up care, medications, Prescriptions given X 3, 01:56 Patient left the ED. dd2 Signatures: Dispatcher [employer] EDWV Regina Guidry jj6 Becca Jiang RN RN 1 Mauri Pacheco MD MD sp4 Yoon Cope DIANA, RN RN dd2
[2024-05-17 02:24] VITALS: O2SAT 99
[2024-05-17 02:26] VITALS: BP 144/79; TEMP 98.2
--- NOTE | 2024-05-17 05:39 | RAD REPORT ---
EXAM DESCRIPTION: Chest Single View RadLex: XR CHEST 1 VIEW CLINICAL HISTORY: 29 years Female, CHEST PAIN COMPARISON: None. FINDINGS: Single portable AP upright view of the chest. Exam is slightly limited due to soft tissue attenuation . Normal size of the cardiac silhouette. No visualized consolidation, pleural effusion, or pneumothorax. No acute osseous abnormality. IMPRESSION: No acute radiographic abnormality. Electronically signed by: Lisette Watters MD 05/17/2024 02:29 AM [facility] Due to temporary technical issues with the PACS/[employer] reporting system, reports are being fanny d by the in-house radiologist without review as a courtesy to ensure prompt reporting the interpreting radiologist is fully responsible for the content of the report. Transcribed Date/Time: 05/17/2024 5:38 AM
--- NOTE | 2024-05-19 12:20 | EKG ---
Test Date: 2024-05-16 Test Time: 23:41:24 Certified Physician'S Assistant: SAVANNAH MEASUREMENT RESULTS: Intervals: Rate: 117 SC: 128 QRSD: 78 QT: 336 QTc: 468 Napoleon: P: 69 SC: 128 QRS: 94 T: 35 INTERPRETIVE STATEMENTS: Sinus tachycardia Nonspecific T wave abnormality Abnormal ECG Compared to ECG 12/02/2023 08:49:57 T-wave abnormality now present Sinus rhythm no longer present Sinus arrhythmia no longer present Electronically Signed On 05-19-24 12:16:33 BANK OPERATIONS OFFICER by Rudy Langston
== END 2024-05-17 01:56 | disposition home or self-care (01) ==
LOC: ER 22:56
DX: R05.9 Cough, unspecified (principal); E86.0 Dehydration; J02.9 Acute pharyngitis, unspecified
CPT/HCPCS: 36415; 71045; 80048; 80076; 81025; 83880; 84484; 85025; 87804; 93005; 96361; 96374; 99285; J2405; J7030

== ENCOUNTER 2024-11-25 00:27 | Emergency (ER) | payer SELFPAY ==
[2024-11-25 01:11] LABS: Absolute Lymphocytes (CBC) 3.0 K/uL (0.7-4.9); Hematocrit 37.8 % (36.0-45.0); Hemoglobin 13.0 g/dL (12.0-15.0); MCH 29.1 pg (27.0-35.0); MCHC 34.3 g/dL (32.0-36.0); MCV 84.9 fL (80-100); MPV 8.2 fL (7.6-11.3); Nucleated RBC Absolute Count 0.0 (0-0); Nucleated Red Blood Cells % 0.1 % (0-0); RBC Red Blood Cell Count 4.46 M/uL (3.86-4.86); White Blood Count 9.90 thou/uL (4.3-10.9)
[2024-11-25 01:13] LABS: ALT/SGPT 95 U/L (13-56); AST/SGOT 45 U/L (15-37); Albumin 3.2 g/dL (3.4-5.0); Albumin/Globulin Ratio 0.8 (1.1-1.8); Alkaline Phosphatase 69 U/L (45-117); Anion Gap 9.2 mEq/L (5.0-15.0); BUN Blood Urea Nitrogen 10 mg/dL (7-18); Globulin 4.0 g/dL (2.3-3.5); Glucose Level 213 mg/dL (74-106); Magnesium 1.8 mg/dL (1.6-2.4); NT PRO-BNP 117 pg/mL (<125); Potassium 4.2 mEq/L (3.5-5.1)
[2024-11-25 01:25] LABS: Bilirubin Indirect, Calculated 0.1 mg/dL (0.2-0.8); Troponin High Sensitivity < 3.0 pg/mL (<58.9)
[2024-11-25 01:35] LABS: Thyroid Stimulating Hormone 1.540 uIU/mL (0.358-3.740)
[2024-11-25 01:45] LABS: PT Prothrombin Time 13.6 SECONDS (10-13.0); Protime INR 1.21
--- NOTE | 2024-11-25 02:10 | ER ---
Nurse's Notes [facility] Name: Isamar Baird Age: 29 yrs Sex: Female : 1995 Arrival Date: 11/25/2024 Time: 00:27 Bed 8 Private MD: Diagnosis: New onset diabetes mellitus type II with hyperglycemia, noncardiac chest pain Presentation: 11/25 00:30 Chief complaint: Patient states: CHEST PAIN THAT STARTED 30 MINUTES AGO, BILATERAL ARM ha1 NUMBNESS AND TINGLING. 00:30 Coronavirus screen: Client denies travel out of the [place] in the last 14 days. Ebola ha1 Screen: No symptoms or risks identified at this time. Initial Sepsis Screen: Does the patient meet any 2 criteria? No. Patient's initial sepsis screen is negative. Does the patient have a suspected source of infection? No. Patient's initial sepsis screen is negative. Risk Assessment: Do you want to hurt yourself or someone else? Patient reports no desire to harm self or others. Onset of symptoms was November 25, 2024. 00:30 Method Of Arrival: Ambulatory ha1 00:30 Acuity: NAKUL 2 ha1 Triage Assessment: 00:49 General: Appears uncomfortable, Behavior is anxious. Pain: Complains of pain in chest ha1 Pain does not radiate. Pain currently is 7 out of 10 on a pain scale. Quality of pain is described as pressure. Neuro: Level of Consciousness is awake, alert, obeys commands, Oriented to person, place, time, situation. Cardiovascular: Capillary refill < 3 seconds Patient's skin is warm and dry. Respiratory: Airway is patent Respiratory effort is even, unlabored, Respiratory pattern is regular, symmetrical. Historical: - Allergies: 00:49 PENICILLINS; ha1 - PMHx: 00:49 Migraines; ha1 - Immunization history:: Adult Immunizations up to date. - Infectious Disease History:: Denies. - Social history:: Smoking status: Patient denies any tobacco usage or history of. - Family history:: not pertinent. Screenin:44 [facility] ED Fall Risk Assessment (Adult) History of falling in the last 3 months, lg3 including since admission No falls in past 3 months (0 pts) Confusion or Disorientation No (0 pts) Intoxicated or Sedated No (0 pts) Impaired Gait No (0 pts) Mobility Assist Device Used No (0 pt) Altered Elimination No (0 pt) Score/Fall Risk Level 0 - 2 = Low Risk Oriented to surroundings, Maintained a safe environment, Educated pt \T\ family on fall prevention, incl call for assistance when getting out of bed, Assessed \T\ reinforced patient's understanding of fall precautions. Abuse screen: Denies threats or abuse. Denies injuries from another. Nutritional screening: No deficits noted. Tuberculosis screening: No symptoms or risk factors identified. Assessment: 00:44 General: Appears in no apparent distress. uncomfortable, Behavior is calm, cooperative. lg3 Pain: Complains of pain in mid-sternal area Pain does not radiate. Pain currently is 7 out of 10 on a pain scale. Pain began 30 min ago. Also complains of tingling to bilateral arms. Neuro: No deficits noted. Bailey Agitation-Sedation Scale (RASS): 0 - Alert and Calm Level of Consciousness is awake, alert, obeys commands, Oriented to person, place, time, situation. Cardiovascular: No deficits noted. Reports chest pain, Heart tones S1 S2 present Rhythm is sinus rhythm. Respiratory: No deficits noted. Airway is patent Respiratory effort is even, unlabored, Respiratory pattern is regular, symmetrical, Breath sounds are clear bilaterally. GI: No deficits noted. No signs and/or symptoms were reported involving the gastrointestinal system. Abdomen is round non-distended, obese. : No signs and/or symptoms were reported regarding the genitourinary system. EENT: No deficits noted. No signs and/or symptoms were reported regarding the EENT system. Derm: No deficits noted. No signs and/or symptoms reported regarding the dermatologic system. Skin is intact, is healthy with good turgor, Skin is dry, Skin is normal, Skin temperature is warm. Musculoskeletal: No deficits noted. Circulation, motion, and sensation intact. Range of motion: intact in all extremities. 01:35 Reassessment: Patient appears in no apparent distress at this time. No changes from lg3 previously documented assessment. Patient and/or family updated on plan of care and expected duration. Pain level reassessed. Patient is alert, oriented x 3, equal unlabored respirations, skin warm/dry/pink. Vital Signs: 00:30 BP 140 / 80; Pulse 93; Resp 16 S; Temp 98.4(O); Pulse Ox 99% on R/A; Weight 131 kg; ha1 Height 5 ft. 2 in. ; Pain 7/10; 01:35 BP 112 / 54; Pulse 87; Resp 16 S; Pulse Ox 98% on R/A; lg3 02:23 BP 143 / 64; Pulse 84; Resp 16; Pulse Ox 98% on R/A; kd3 00:30 Body Mass Index 52.82 (131.00 kg, 157.48 cm) ha1 00:30 Pain Scale: Adult ha1 [place] Coma Score: 03:35 Eye Response: spontaneous(4). Motor Response: obeys commands(6). Verbal Response: sp4 oriented(5). Total: 15. ED Course: 00:32 Patient arrived in ED. im 00:33 Muari Pacheco MD is Attending Physician. sp4 00:34 Zora Potter, SPENSER is Primary Nurse. kd3 00:44 Initial lab(s) drawn, by me, sent to lab. EKG done, by ED staff, reviewed by Mauri Pacheco MD. Inserted saline lock: 20 gauge in right antecubital area, using aseptic technique. Blood collected. Flushed with 10 mL NS. Patient maintains SpO2 saturation greater than 95% on room air. 00:44 Patient has correct armband on for positive identification. Placed in gown. Bed in low lg3 position. Call light in reach. Side rails up X 1. Client placed on continuous cardiac and pulse oximetry monitoring. NIBP monitoring applied. surveillance monitor on. Door closed. Noise minimized. Warm blanket given. Pillow given. Family accompanied patient. 00:48 Test, Serum Sent. lg3 00:48 Arm band placed on right wrist. lg3 00:49 Triage completed. ha1 00:50 EKG done, by accounts payable technician. ts3 01:27 XRAY Chest (1 view) In Process Unspecified. EDMS 02:23 No provider procedures requiring assistance completed. IV discontinued, intact, kd3 bleeding controlled, No redness/swelling at site. Pressure dressing applied. 02:23 Provided Education on: metformin . kd3 Administered Medications: No medications were administered Medication: 00:44 VIS not applicable for this client. lg3 Outcome: 02:10 Discharge ordered by . sp4 02:23 Discharged to home ambulatory, kd3 02:23 Condition: stable 02:23 Discharge instructions given to patient, Instructed on discharge instructions, follow up and referral plans. medication usage, Demonstrated understanding of instructions, follow-up care, medications, Prescriptions given X 1, 02:24 Patient left the ED. kd3 Signatures: Dispatcher [employer] EDMS Danielle Coombs RN RN lg3 Zora Potter RN RN kd3 Becca Jiang RN RN ha1 Mauri Pacheco MD MD sp4 Beata Gooden Taisha ts3
--- NOTE | 2024-11-25 02:11 | EDPHYS ---
Physician Documentation [facility] Name: Isamar Baird Age: 29 yrs Sex: Female : 1995 Arrival Date: 11/25/2024 Time: 00:27 Bed 8 Private MD: ED Physician Mauri Pacheco HPI: 11/25 00:33 This 29 yrs old Female presents to ER via Unassigned with complaints of Chest sp4 Pain. 03:35 Patient presents with acute onset midsternal stabbing chest pain. Complains of sp4 bilateral numb tingling. Historical: - Allergies: 00:49 PENICILLINS; ha1 - PMHx: 00:49 Migraines; ha1 - Immunization history:: Adult Immunizations up to date. - Infectious Disease History:: Denies. - Social history:: Smoking status: Patient denies any tobacco usage or history of. - Family history:: not pertinent. ROS: 03:35 Constitutional: Negative for fever, chills, and weight loss, positive chest pain sp4 positive tingle 03:35 All other systems are negative, Exam: 03:35 Constitutional: This is a well developed, well nourished patient who is awake, alert, sp4 and in no acute distress. Head/Face: Normocephalic, atraumatic. Eyes: Pupils equal round and reactive to light, extra-ocular motions intact. Lids and lashes normal. Conjunctiva and sclera are not injected. Cornea within normal limits. Periorbital areas with no swelling, redness, or edema. ENT: Nares patent. No nasal discharge, no septal abnormalities noted. Tympanic membranes are normal and external auditory canals are clear. Oropharynx with no redness, swelling, or masses, exudates, or evidence of obstruction, uvula midline. Mucous membranes moist. Neck: Trachea midline, no thyromegaly or masses palpated, and no cervical lymphadenopathy. Supple, full range of motion without nuchal rigidity, or vertebral point tenderness. Chest/axilla: Normal chest wall appearance and motion. Nontender with no deformity. No lesions are appreciated. Cardiovascular: Regular rate and rhythm with a normal S1 and S2. No gallops, murmurs, or rubs. No pulse deficits. Respiratory: Lungs have equal breath sounds bilaterally, clear to auscultation and percussion. No rales, rhonchi or wheezes noted. No increased work of breathing, no retractions or nasal flaring. Abdomen/GI: Soft, with normal bowel sounds. No distension or tympany. No guarding or rebound. No evidence of tenderness throughout. Back: No spinal tenderness. No costovertebral tenderness. Skin: Warm, dry with normal turgor. Normal color with no rashes, no lesions, and no evidence of cellulitis. MS/ Extremity: Pulses equal, no cyanosis. Neurovascular intact. Full, normal range of motion. Neuro: Awake and alert, GCS 15, oriented to person, place, time, and situation. Cranial nerves II-XII grossly intact. Motor strength 5/5 in all extremities. Sensory grossly intact. Psych: Awake, alert, with orientation to person, place and time. Behavior, mood, and affect are within normal limits 03:35 ECG was reviewed by the Attending Physician. EKG 0037 normal sinus rhythm rate 96 Vital Signs: 00:30 BP 140 / 80; Pulse 93; Resp 16 S; Temp 98.4(O); Pulse Ox 99% on R/A; Weight 131 kg; ha1 Height 5 ft. 2 in. ; Pain 7/10; 01:35 BP 112 / 54; Pulse 87; Resp 16 S; Pulse Ox 98% on R/A; lg3 02:23 BP 143 / 64; Pulse 84; Resp 16; Pulse Ox 98% on R/A; kd3 00:30 Body Mass Index 52.82 (131.00 kg, 157.48 cm) ha1 00:30 Pain Scale: Adult ha1 [place] Coma Score: 03:35 Eye Response: spontaneous(4). Motor Response: obeys commands(6). Verbal Response: sp4 oriented(5). Total: 15. MDM: 00:34 Medical Screening Exam initiated sp4 03:37 Differential diagnosis: acute pericarditis, anxiety, coronary artery disease chest wall sp4 pain, congestive heart failure cholecystitis. HEART Score: History: Slightly Suspicious (0), ECG: Normal (0), Age: < or = 45 years (0), Risk Factors: No Risk Factors Known (0), Troponin: < or = 1 x Normal Limit (0), Total Score = 0. Data reviewed: vital signs, nurses notes, lab test result(s), EKG, radiologic studies, plain films. 03:40 ED course: XR CHEST 1 VIEW CLINICAL INDICATION: Chest pain COMPARISON: None FINDINGS: sp4 LUNGS/PLEURAL SPACES: Lungs are clear. No pleural effusion. No pneumothorax. HEART/MEDIASTINUM: Within normal range. BONES/UPPER ABDOMEN/SOFT TISSUES: Unremarkable. IMPRESSION: Negative chest exam. . ED course: Patient was advised that she has signs of new onset diabetes with mild hyperglycemia. Advised to see primary care physician in 2 to 4 weeks.. 11/25 00:34 Order name: Basic Metabolic Panel; Complete Time: 58 sp4 11/25 00:34 Order name: CBC with Diff; Complete Time: :58 sp4 11/25 00:34 Order name: LFT's; Complete Time: sp4 11/25 00:34 Order name: Magnesium; Complete Time: sp4 11/25 00:34 Order name: NT PRO-BNP; Complete Time: 58 sp4 11/25 00:34 Order name: PT-INR; Complete Time: 58 sp4 11/25 00:34 Order name: Troponin HS; Complete Time: 58 sp4 11/25 00:34 Order name: Test, Serum; Complete Time: :58 sp4 11/25 01:18 Order name: T4 Free; Complete Time: 58 EDMS 11/25 01:18 Order name: Thyroid Stimulating Hormone; Complete Time: :58 EDMS 11/25 00:34 Order name: XRAY Chest (1 view) sp4 11/25 00:34 Order name: Cardiac monitoring; Complete Time: 00:48 sp4 11/25 00:34 Order name: EKG - Nurse/Tech; Complete Time: 00:48 sp4 11/25 00:34 Order name: IV Saline Lock; Complete Time: 00:48 sp4 11/25 00:34 Order name: Labs collected and sent; Complete Time: 00:48 sp4 11/25 00:34 Order name: O2 Per Protocol; Complete Time: 00:48 sp4 11/25 00:34 Order name: O2 Sat Monitoring; Complete Time: 00:48 sp4 EC:37 Rate is 96 beats/min. Rhythm is regular, Normal Sinus Rhythm. QRS [place] is Normal. [place] sp4 interval is normal. QRS interval is normal. QT interval is normal. No Q waves. T waves are Normal. No ST changes noted. Clinical impression: No evidence of ischemia. Interpreted by me. Reviewed by me. Administered Medications: No medications were administered Disposition: 03:41 Chart complete. sp4 Disposition Summary: 11/25/24 02:10 Discharge Ordered Notes: We recommend visit with Primary MD in 2 to 4 weeks Location: Home sp4 Problem: new sp4 Symptoms: have improved sp4 Condition: Stable sp4 Diagnosis - New onset diabetes mellitus type II with hyperglycemia, noncardiac chest pain sp4 Followup: sp4 - With: Private Physician - When: 10 - 14 days - Reason: Recheck today's complaints Discharge Instructions: - Discharge Summary Sheet sp4 - Diabetes Mellitus and Nutrition, Adult sp4 Forms: - Patient Portal Instructions sp4 Prescriptions: - Metformin 500 mg Oral Tablet, Extended Release 24 hr - take 1 tablet ORAL route every 12 hours with food; 180 tablet; Refills: 0, sp4 Product Selection Permitted Signatures: Dispatcher [employer] Becca Garcia RN RN ha1 Mauri Pacheco MD MD sp4 Corrections: (The following items were deleted from the chart) 00:34 00:34 BASIC METABOLIC PANEL+C.LAB.BRZ ordered. EDGA EDGA 00:34 00:34 CBC+H.LAB.BRZ ordered. EDGA EDGA 00:34 00:34 HEPATIC FUNCTION+C.LAB.BRZ ordered. EDGA EDGA 00:34 00:34 MAGNESIUM+C.LAB.BRZ ordered. EDGA EDGA 00:34 00:34 PROBNP+C.LAB.BRZ ordered. EDGA EDGA 00:34 00:34 PROTIME (+INR)+COAG.LAB.BRZ ordered. EDGA EDGA 00:34 00:34 Troponin High Sensitivity+C.LAB.BRZ ordered. EDGA EDGA 00:34 00:34 Chest Single View+RAD.RAD.BRZ ordered. EDGA EDGA 00:34 00:34 TEST, SERUM+SC.LAB.BRZ ordered. EDGA EDMS 01:16 01:14 THYROID STIMULAT HORMONE+C.LAB.BRZ ordered. EDGA EDMS 01:16 01:14 T4 FREE+C.LAB.BRZ ordered. EDGA EDGA
[2024-11-25 02:28] VITALS: TEMP 98.4
[2024-11-25 02:30] VITALS: O2SAT 98
[2024-11-25 02:32] VITALS: BP 143/64
--- NOTE | 2024-11-25 05:11 | RAD REPORT ---
XR CHEST 1 VIEW CLINICAL INDICATION: Chest pain COMPARISON: None FINDINGS: LUNGS/PLEURAL SPACES: Lungs are clear. No pleural effusion. No pneumothorax. HEART/MEDIASTINUM: Within normal range. BONES/UPPER ABDOMEN/SOFT TISSUES: Unremarkable. IMPRESSION: Negative chest exam. Electronically signed by: Olivia Saez MD 11/25/2024 03:15 AM CDT RP Due to temporary technical issues with the PACS/[employer] reporting system, reports are being fanny d by the in-house radiologist without review as a courtesy to ensure prompt reporting the interpreting radiologist is fully responsible for the content of the report Transcribed Date/Time: 11/25/2024 5:11 AM
== END 2024-11-25 02:24 | disposition home or self-care (01) ==
LOC: ER 00:27
DX: R07.89 Other chest pain (principal); E11.65 Type 2 diabetes mellitus with hyperglycemia; Z88.0 Allergy status to penicillin
CPT/HCPCS: 36415; 71045; 80048; 80076; 83735; 83880; 84439; 84443; 84484; 84703; 85025; 85610; 93005; 99285